=== PATIENT | male | born 1965 | race Caucasian/White ===

== ENCOUNTER 2017-09-11 23:18 | Inpatient (IN) | payer OTHER ==
[2017-09-11] MEDS ORDERED: SODIUM CHLORIDE 0.9% 1,000 ML IV STA (23:38)
[2017-09-11] MEDS ORDERED: FAMOTIDINE 20 MG/2 ML VIAL IV STA (23:38)
[2017-09-11] MEDS ORDERED: ONDANSETRON 4 MG/2 ML VIAL IVP STA (23:38)
--- NOTE | 2017-09-12 00:03 | ED ---
General Adult HPI - General Chief complaint: Abdominal Pain Stated complaint: gallbladder issue Time Seen by Provider: 09/11/17 23:24 Source: patient, RN notes reviewed Mode of arrival: ambulatory Limitations: no limitations - History of Present Illness Initial comments: Patient 52-year-old male presented to the emergency room today with a chief complaint of abdominal pain. Patient does admit to history of gallstones. He states that over the weekend began having increased discomfort to the right upper quadrant. Patient states that he noticed the pain is worse and more aggravated after eating and drinking. She does admit to feeling nauseated with no vomiting. Denies any other complaints or symptoms currently. Patient denies any recent fever, chills, shortness of breath, chest pain, back pain, vomiting, numbness or tingling, dysuria or hematuria, constipation or diarrhea, headaches or visual changes, or any other complaints. - Related Data Home Medications Medication Instructions Recorded Confirmed Albuterol Nebulized [Ventolin 2.5 mg INHALATION RT-Q6H PRN 06/11/15 06/11/15 Nebulized] Amoxicillin/Potassium Clav 1 tab PO BID 06/11/15 06/11/15 [Amox-Clav 875-125 mg Tablet] Atenolol 50 mg PO DAILY 06/11/15 06/11/15 Ibuprofen [Motrin] 800 mg PO BID PRN 06/11/15 06/11/15 Omeprazole [PriLOSEC] 20 mg PO DAILY 06/11/15 06/11/15 Previous Rx's Medication Instructions Recorded Albuterol Nebulized [Ventolin 2.5 mg INHALATION Q6H #120 nebu 06/14/15 Nebulized] Azithromycin [Zithromax Z-pack] 0 mg PO DIRECTED #6 tab 06/14/15 predniSONE 0 mg PO DIRECTED #12 tab 06/14/15 Allergies Allergy/AdvReac Type Severity Reaction Status Date / Time No Known Allergies Allergy Verified 09/11/17 23:22 Review of Systems ROS Statement: Those systems with pertinent positive or pertinent negative responses have been documented in the HPI. ROS Other: All systems not noted in ROS Statement are negative. Past Medical History Past Medical History: GERD/Reflux, Hypertension Additional Past Medical History / Comment(s): "HERNIATED DISCS", VARICOSE VEINS , BRONCHITIS,UPPER RESP TRACT INFECTIONS,GOUT, RT LEG DICOLOARATION., History of Any Multi-Drug Resistant Organisms: None Reported Past Surgical History: Hernia Repair Additional Past Surgical History / Comment(s): EGD/COLONOSCOPY ONE SMALL POYLS REMOVED-BENIGN., UMBILCAL HERNIA REAPAIR. Additional Past Anesthesia/Blood Transfusion Reaction / Comment(s): -NO BLOOD PRODUCTS Past Psychological History: No Psychological Hx Reported Smoking Status: Never smoker Past Alcohol Use History: None Reported Past Drug Use History: None Reported - Past Family History Father Family Medical History: Cancer, COPD, Diabetes Mellitus, Prostate Disorder Additional Family Medical History / Comment(s): PROSTATE CANCER Mother Family Medical History: COPD, Hypertension General Exam - General Exam Comments Initial Comments: General: The patient is awake and alert, in no distress, and does not appear acutely ill. Eye: Pupils are equal, round and reactive to light, extra-ocular movements are intact. No nystagmus. There is normal conjunctiva bilaterally. No signs of icterus. Ears, nose, mouth and throat: There are moist mucous membranes and no oral lesions. Neck: The neck is supple, there is no tenderness or JVD. Cardiovascular: There is a regular rate and rhythm. No murmur, rub or gallop is appreciated. Respiratory: Lungs are clear to auscultation, respirations are non-labored, breath sounds are equal. No wheezes, stridor, rales, or rhonchi. Gastrointestinal: Tender palpation of the right upper quadrant. No rebound, guarding, CVA tenderness. Musculoskeletal: Normal ROM, no tenderness. Strength 5/5. Sensation intact. Neurological: A&O x 3. CN II-XII intact, There are no obvious motor or sensory deficits. Coordination appears grossly intact. Speech is normal. Skin: Skin is warm and dry and no rashes or lesions are noted. Psychiatric: Cooperative, appropriate mood & affect, normal judgment. Limitations: no limitations Course Vital Signs 09/11/17 23:19 Temperature 98.2 F Pulse Rate 73 Respiratory 18 Rate Blood Pressure 128/78 O2 Sat by Pulse 98 Oximetry Medical Decision Making - Medical Decision Making Patient's labs been reviewed does show elevated amylase lipase. Results discussed with patient. Patient does have a known history of gallstones. Ultrasound showing no evidence of acute cholecystitis. Patient will be admitted to the hospital with consult to GI and surgery. - Lab Data Result diagrams: 09/12/17 00:00 09/12/17 00:00 Lab Results 09/12/17 09/12/17 09/12/17 Range/Units 00:00 00:00 00:12 WBC 6.1 (3.8-10.6) k/uL RBC 4.91 (4.30-5.90) m/uL Hgb 15.3 (13.0-17.5) gm/dL Hct 44.6 (39.0-53.0) % MCV 90.9 (80.0-100.0) fL MCH 31.2 (25.0-35.0) pg MCHC 34.3 (31.0-37.0) g/dL RDW 13.3 (11.5-15.5) % Plt Count 157 (150-450) k/uL Neutrophils % 60 % Lymphocytes % 26 % Monocytes % 9 % Eosinophils % 4 % Basophils % 1 % Neutrophils # 3.7 (1.3-7.7) k/uL Lymphocytes # 1.6 (1.0-4.8) k/uL Monocytes # 0.5 (0-1.0) k/uL Eosinophils # 0.2 (0-0.7) k/uL Basophils # 0.0 (0-0.2) k/uL Sodium 140 (137-145) mmol/L Potassium 4.2 (3.5-5.1) mmol/L Chloride 103 (98-107) mmol/L Carbon Dioxide 27 (22-30) mmol/L Anion Gap 10 mmol/L BUN 21 H (9-20) mg/dL Creatinine 0.90 (0.66-1.25) mg/dL Est GFR (CKD-EPI)AfAm >90 (>60 ml/min/1.73 sqM) Est GFR (CKD-EPI)NonAf >90 (>60 ml/min/1.73 sqM) Glucose 118 H (74-99) mg/dL Calcium 9.3 (8.4-10.2) mg/dL Total Bilirubin 5.7 H (0.2-1.3) mg/dL AST 300 H (17-59) U/L ALT 347 H (21-72) U/L Alkaline Phosphatase 89 (38-126) U/L Total Protein 7.5 (6.3-8.2) g/dL Albumin 4.7 (3.5-5.0) g/dL Amylase 177 H (30-110) U/L Lipase 2616 H (23-300) U/L Urine Color Lena Urine Appearance Clear (Clear) Urine pH 6.0 (5.0-8.0) Ur Specific [place] 1.022 (1.001-1.035) Urine Protein Trace H (Negative) Urine Glucose (UA) Negative (Negative) Urine Ketones Negative (Negative) Urine Blood Negative (Negative) Urine Nitrite Negative (Negative) Urine Bilirubin 2+ H (Negative) Urine Urobilinogen 4.0 (<2.0) mg/dL Ur Leukocyte Esterase Negative (Negative) Disposition Clinical Impression: Acute pancreatitis Disposition: ADMITTED IP TO THIS [facility] Condition: Good Is patient prescribed a controlled substance at d/c from ED?: No Referrals: Dylon Bonilla MD [Primary Care Provider] - 1-2 days Time of Disposition: 01:45
[2017-09-12 00:07] LABS: Basophils % (A) 1 %; Eosinophils # (A) 0.2 k/uL (0-0.7); Eosinophils % (A) 4 %; HCT 44.6 % (39.0-53.0); HGB 15.3 gm/dL (13.0-17.5); Lymphocytes # (A) 1.6 k/uL (1.0-4.8); Lymphocytes % (A) 26 %; MCH 31.2 pg (25.0-35.0); MCHC 34.3 g/dL (31.0-37.0); MCV 90.9 fL (80.0-100.0); Mean Platelet Volume 7.4; Monocytes # (A) 0.5 k/uL (0-1.0); Monocytes % (A) 9 %; Neutrophils # (A) 3.7 k/uL (1.3-7.7); Neutrophils % (A) 60 %; Platelet Count 157 k/uL (150-450); RBC 4.91 m/uL (4.30-5.90); RDW 13.3 % (11.5-15.5); WBC 6.1 k/uL (3.8-10.6)
[2017-09-12 00:18] LABS: Albumin 4.7 g/dL (3.5-5.0); Amylase 177 U/L (30-110); Anion Gap 10 mmol/L; Calcium 9.3 mg/dL (8.4-10.2); Carbon Dioxide 27 mmol/L (22-30); Chloride 103 mmol/L (98-107); Glucose 118 mg/dL (74-99); Sodium 140 mmol/L (137-145); Total Bilirubin 5.7 mg/dL (0.2-1.3); Total Protein 7.5 g/dL (6.3-8.2)
[2017-09-12 00:22] LABS: Appearance,Urine Clear (Clear); Bilirubin,Urine 2+ (Negative); Blood,Urine Negative (Negative); Color,Urine Orange; Glucose,Urine (UA) Negative (Negative); Ketones,Urine Negative (Negative); Leukocyte Esterase,Urine Negative (Negative); Nitrite,Urine Negative (Negative); Protein,Urine Trace (Negative); Specific Gravity,Urine 1.022 (1.001-1.035)
[2017-09-12 00:25] LABS: ALT 347 U/L (21-72); AST 300 U/L (17-59); Blood Urea Nitrogen 21 mg/dL (9-20); Potassium 4.2 mmol/L (3.5-5.1)
[2017-09-12 00:26] LABS: Alkaline Phosphatase 89 U/L (38-126); Lipase 2616 U/L (23-300)
--- NOTE | 2017-09-12 00:56 | US ---
EXAMINATION TYPE: US abdomen limited DATE OF EXAM: 09/12/2017 COMPARISON: NONE CLINICAL HISTORY: Pain. RUQ pain hx of gallbladder stones. Exam limitations due to body habitus. EXAM MEASUREMENTS: Liver Length: 24.7 cm Gallbladder Wall: Not well visualized due to shadowing. CBD: 0.59 cm Right Kidney: 12.6 x 5.2 x 6.1 cm Pancreas: Obscured by bowel gas Liver: Increased attenuation Gallbladder: ROSLYN sign Evidence for sonographic Reese's sign: No CBD: wnl Right Kidney: No hydronephrosis or masses seen ROSLYN sign gallbladder. IMPRESSION: There is shadowing in the right upper quadrant consistent with a contracted gallbladder f ull of stones. No dilated ducts. No focal liver defect.
[2017-09-12] MEDS ORDERED: SODIUM CHLORIDE 0.9% 1,000 ML IV ONE (01:46)
[2017-09-12] MEDS ORDERED: ONDANSETRON 4 MG/2 ML VIAL IVP PRN (01:46)
[2017-09-12] MEDS ORDERED: MORPHINE SULFATE 4 MG/ML SYRINGE IV PRN (01:46)
[2017-09-12] MEDS ORDERED: NALOXONE 0.4 MG/ML 1 ML VIAL IV PRN (01:46)
[2017-09-12] MEDS ORDERED: LORazepam 2 MG/ML INJ IV PRN (01:46)
[2017-09-12 04:23] VITALS: BMI 52.5
--- NOTE | 2017-09-12 08:38 | P.CONS ---
History of Present Illness - Reason for Consult Consult date: 09/12/17 Pancreatitis Requesting physician: Dylon Bonilla - History of Present Illness 52-year-old male admitted with severe epigastric upper back pain that started Douglas night with nausea acholic stool and darker urine. Patient has had a similar attack of pain but occurred many years ago. Denies fever chills hematemesis magnesium melena. Admission white count 6.1. He will and 15.3. BUN 21 creatinine 0.9. Total bilirubin 5.7. AST 300. ALT 347. AP 89. Lipase 2616. Amylase 177. No history of autoimmune disorders, pancreatitis alcoholism or changes in medications. He has intentionally lost 100 pounds over the last 12-18 months secondary to diet changes present BMI is 52.6. Ultrasound the abdomen reported multiple gallstones. CBD 0.59 cm. No focal liver defect. No dilated ducts. Review of Systems Constitutional: Denies fever, chills, sweats, weight gain, or loss. HEENT: Negative for migraines, blurred vision or loss, earaches, drainage, tinnitus, oral mucosal lesions, dysphagia, or odynophagia. Cardiac: Negative for chest pain, arrhythmias, or palpitation. Respiratory: Negative for shortness of breath, hemoptysis, cough, or sputum production. Gastrointestinal: See HPI for pertinent findings. Genitourinary: Negative for hematuria, urgency, frequency, polyuria, dysuria, or penile discharge. Musculoskeletal: Negative for muscle aches, swelling, arthritis, and arthralgias. Neurologic: Negative for stroke or TIA. Endocrine: Negative for thyroid problems. Skin: Negative for rash or itching. Psychiatric: Negative history for depression and anxiety Past Medical History Past Medical History: GERD/Reflux, Hypertension Additional Past Medical History / Comment(s): HERNIATED DISCS, VARICOSE VEINS, BRONCHITIS, UPPER RESP TRACT INFECTIONS,GOUT, RT LEG DICOLOARATION., History of Any Multi-Drug Resistant Organisms: None Reported Past Surgical History: Hernia Repair Additional Past Surgical History / Comment(s): EGD/COLONOSCOPY ONE SMALL POLYP REMOVED-BENIGN., UMBILCAL HERNIA REAPAIR. Additional Past Anesthesia/Blood Transfusion Reaction / Comm: -NO BLOOD PRODUCTS Past Psychological History: No Psychological Hx Reported Smoking Status: Never smoker Past Alcohol Use History: None Reported Past Drug Use History: None Reported - Past Family History Father Family Medical History: Cancer, COPD, Diabetes Mellitus, Prostate Disorder Additional Family Medical History / Comment(s): PROSTATE CANCER Mother Family Medical History: COPD, Hypertension Medications and Allergies Home Medications Medication Instructions Recorded Confirmed Type Ibuprofen [Motrin] 800 mg PO BID PRN 06/11/15 09/12/17 History Metoprolol Tartrate [Lopressor] 50 mg PO AC-SUPPER 09/12/17 09/12/17 History Omeprazole [PriLOSEC] 20 mg PO DAILY PRN 09/12/17 09/12/17 History Allergies Allergy/AdvReac Type Severity Reaction Status Date / Time No Known Allergies Allergy Verified 09/12/17 08:10 Physical Exam Vitals: Vital Signs Temp Pulse Pulse Resp BP BP Pulse Ox 09/12/17 05:25 97.7 F 69 16 136/69 97 09/12/17 02:54 97.6 F 71 16 132/74 94 L 09/12/17 02:40 16 09/11/17 23:19 98.2 F 73 18 128/78 98 Intake and Output 09/11/17 09/12/17 09/12/17 22:59 06:59 14:59 Other: # Voids 1 Weight 171.004 kg General appearance: The patient is alert, oriented, in no acute distress. Mildly jaundiced in appearance. Sclerae icterus. HET: Head is normocephalic and atraumatic. Pupils are equal and reactive. Oropharynx is clear without lesions. Neck: Supple without lymphadenopathy. Trachea midline. Heart: S1 S2. Regular rate and rhythm. Lungs: No crackles or wheezes are heard. Abdomen: Soft, mild midepigastric pain, nondistended with bowel sounds. No peritoneal signs. No palpable organomegaly or masses. Extremities: Normal skin color and turgor. No cyanosis, rash, ulceration, clubbing, or edema. Radial and pedal pulses are 2/4 bilaterally. Neurological: No focal deficits. Strength and sensation are grossly intact. Results CBC & Chem 7: 09/13/17 07:40 09/13/17 07:40 Labs: Abnormal Lab Results - Last 24 Hours (Table) 09/12/17 09/12/17 Range/Units 00:00 00:12 BUN 21 H (9-20) mg/dL Glucose 118 H (74-99) mg/dL Total Bilirubin 5.7 H (0.2-1.3) mg/dL AST 300 H (17-59) U/L ALT 347 H (21-72) U/L Amylase 177 H (30-110) U/L Lipase 2616 H (23-300) U/L Urine Protein Trace H (Negative) Urine Bilirubin 2+ H (Negative) US - abdomen: report reviewed (Dr. Banks) Assessment and Plan (1) Acute pancreatitis Narrative/Plan: Suspect gallstone pancreatitis possible choledocholithiasis. Current Visit: Yes Status: Acute Code(s): K85.90 - ACUTE PANCREATITIS WITHOUT NECROSIS OR INFECTION, UNSP SNOMED Code(s): 725072189 (2) Cholelithiasis Current Visit: Yes Status: Acute Code(s): K80.20 - CALCULUS OF GALLBLADDER W /O CHOLECYSTITIS W/O OBSTRUCTION SNOMED Code(s): 331306917 (3) Morbid obesity with BMI of 50.0-59.9, adult Current Visit: Yes Status: Acute Code(s): E66.01 - MORBID (SEVERE) OBESITY DUE TO EXCESS CALORIES; Z68.43 - BODY MASS INDEX (BMI) 50-59.9 , ADULT SNOMED Code(s): 507304851 Plan: 1. IV fluids at 125 ml hour. 2. Ice chips popsicles. 3. Repeat chemistries at noon and in am. Hepatitis screen. 4. ERCP contingent on clinical course. 5. General surgical consult. Thank you for this kind referral and the opportunity to participate in the care of your patient. This consultation was discussed with Dr. Banks. The impression and plan of care have been directed as dictated.
--- NOTE | 2017-09-12 11:52 | P.GSCN ---
History of Present Illness Consult date: 09/12/17 Reason for Consult: Gallstone pancreatitis History of present illness: This a 52-year-old male with history of gallstones. Patient presents to the emergency complaints of abdominal pain which radiate to his back. He is worked up found evidence of gallstone pancreatitis. His ultrasound shows a contracted gallbladder.. Past Medical History Past Medical History: GERD/Reflux, Hypertension Additional Past Medical History / Comment(s): HERNIATED DISCS, VARICOSE VEINS, BRONCHITIS, UPPER RESP TRACT INFECTIONS,GOUT, RT LEG DICOLOARATION., History of Any Multi-Drug Resistant Organisms: None Reported Past Surgical History: Hernia Repair Additional Past Surgical History / Comment(s): EGD/COLONOSCOPY ONE SMALL POLYP REMOVED-BENIGN., UMBILCAL HERNIA REAPAIR. Additional Past Anesthesia/Blood Transfusion Reaction / Comm: -NO BLOOD PRODUCTS Past Psychological History: No Psychological Hx Reported Smoking Status: Never smoker Past Alcohol Use History: None Reported Past Drug Use History: None Reported - Past Family History Father Family Medical History: Cancer, COPD, Diabetes Mellitus, Prostate Disorder Additional Family Medical History / Comment(s): PROSTATE CANCER Mother Family Medical History: COPD, Hypertension Medications and Allergies Home Medications Medication Instructions Recorded Confirmed Type Ibuprofen [Motrin] 800 mg PO BID PRN 06/11/15 09/12/17 History Metoprolol Tartrate [Lopressor] 50 mg PO AC-SUPPER 09/12/17 09/12/17 History Omeprazole [PriLOSEC] 20 mg PO DAILY PRN 09/12/17 09/12/17 History Allergies Allergy/AdvReac Type Severity Reaction Status Date / Time No Known Allergies Allergy Verified 09/12/17 08:10 Surgical - Exam Vital Signs Temp Pulse Resp BP Pulse Ox 98.2 F 73 18 128/78 98 09/11/17 23:19 09/11/17 23:19 09/11/17 23:19 09/11/17 23:19 09/11/17 23:19 - General well developed, well nourished, no distress - Eyes PERRL - ENT normal pinna - Neck no masses - Respiratory normal expansion - Cardiovascular Rhythm: regular - Abdomen Mild epigastric tenderness Abdomen: soft Results - Labs 09/12/17 00:00 09/12/17 00:00 Abnormal Lab Results - Last 24 Hours (Table) 09/12/17 09/12/17 Range/Units 00:00 00:12 BUN 21 H (9-20) mg/dL Glucose 118 H (74-99) mg/dL Total Bilirubin 5.7 H (0.2-1.3) mg/dL AST 300 H (17-59) U/L ALT 347 H (21-72) U/L Amylase 177 H (30-110) U/L Lipase 2616 H (23-300) U/L Urine Protein Trace H (Negative) Urine Bilirubin 2+ H (Negative) Diabetes panel 09/12/17 Range/Units 00:00 Sodium 140 (137-145) mmol/L Potassium 4.2 (3.5-5.1) mmol/L Chloride 103 (98-107) mmol/L Carbon Dioxide 27 (22-30) mmol/L BUN 21 H (9-20) mg/dL Creatinine 0.90 (0.66-1.25) mg/dL Glucose 118 H (74-99) mg/dL Calcium 9.3 (8.4-10.2) mg/dL AST 300 H (17-59) U/L ALT 347 H (21-72) U/L Alkaline Phosphatase 89 (38-126) U/L Total Protein 7.5 (6.3-8.2) g/dL Albumin 4.7 (3.5-5.0) g/dL Calcium panel 09/12/17 Range/Units 00:00 Calcium 9.3 (8.4-10.2) mg/dL Albumin 4.7 (3.5-5.0) g/dL Pituitary panel 09/12/17 Range/Units 00:00 Sodium 140 (137-145) mmol/L Potassium 4.2 (3.5-5.1) mmol/L Chloride 103 (98-107) mmol/L Carbon Dioxide 27 (22-30) mmol/L BUN 21 H (9-20) mg/dL Creatinine 0.90 (0.66-1.25) mg/dL Glucose 118 H (74-99) mg/dL Calcium 9.3 (8.4-10.2) mg/dL Adrenal panel 09/12/17 Range/Units 00:00 Sodium 140 (137-145) mmol/L Potassium 4.2 (3.5-5.1) mmol/L Chloride 103 (98-107) mmol/L Carbon Dioxide 27 (22-30) mmol/L BUN 21 H (9-20) mg/dL Creatinine 0.90 (0.66-1.25) mg/dL Glucose 118 H (74-99) mg/dL Calcium 9.3 (8.4-10.2) mg/dL Total Bilirubin 5.7 H (0.2-1.3) mg/dL AST 300 H (17-59) U/L ALT 347 H (21-72) U/L Alkaline Phosphatase 89 (38-126) U/L Total Protein 7.5 (6.3-8.2) g/dL Albumin 4.7 (3.5-5.0) g/dL - Imaging US - abdomen: report reviewed (Contracted gallbladder full stones) Assessment and Plan Assessment: Gallstone pancreatitis with elevated bilirubin and liver function tests. The patient most likely has choledocholithiasis. GI as has been consult for possible ERCP. The patient will undergo laparoscopic ostectomy once his liver function tests and amylase lipase have returned to normal.
[2017-09-12 13:05] LABS: ALT 304 U/L (21-72); AST 220 U/L (17-59); Albumin 3.8 g/dL (3.5-5.0); Alkaline Phosphatase 85 U/L (38-126); Amylase 63 U/L (30-110); Anion Gap 6 mmol/L; Blood Urea Nitrogen 14 mg/dL (9-20); Calcium 8.9 mg/dL (8.4-10.2); Carbon Dioxide 28 mmol/L (22-30); Chloride 106 mmol/L (98-107); Glucose 89 mg/dL (74-99); Lipase 340 U/L (23-300); Potassium 4.7 mmol/L (3.5-5.1); Sodium 140 mmol/L (137-145); Total Bilirubin 3.2 mg/dL (0.2-1.3)
--- NOTE | 2017-09-12 22:17 | HP ---
HISTORY AND PHYSICAL CHIEF COMPLAINT: A 52-year-old white male, history of hypertension, osteoarthritis, history of epigastric upper back pain last Douglas night, nausea, acholic stool, darker urine many years ago. He was admitted and found have choledocholithiasis and cholecystitis for which surgery will be needed and pancreatitis with lipase 2616, amylase 177. He has no history of alcoholism, change medicines. He lost 100 pounds over the last 12 to 18 months trying to diet. Present BMI is 52.6. Ultrasound shows multiple gallstones. Common bile duct 0.59 cm. REVIEW OF SYSTEM: Fourteen point review of systems negative except for mentioned in HPI. PAST MEDICAL HISTORY: Obesity, GERD, hypertension, herniated discs, varicose veins, gout. SURGERIES: Hernia repair, EGD, colonoscopy, one small polyp, umbilical hernia repair. SOCIAL HISTORY: No smoking. No alcohol. FAMILY HISTORY: Father with cancer, COPD, diabetes mellitus, prostate disorder. Mother with COPD and hypertension. HOME MEDICATIONS: Prilosec 20 mg daily, metoprolol 50 Motrin 800 b.i.d. ALLERGIES: Negative. VITAL SIGNS: Temp 97.7, pulse 69 to 71, respiratory 16 to 18, blood pressure 128/78 to 136/69, O2 94% to 98%. GENERAL: Alert and orient x3. Mild jaundice. HEART: S1, S2. LUNGS: Clear. GI: Soft, mid epigastric tenderness. Normal bowel sounds. EXTREMITIES: No cyanosis, clubbing, edema. NEUROLOGIC: Cranial nerves are intact. White count 6.1, hemoglobin 15.3, BUN 21, creatinine 0.9, lipase 2616. ASSESSMENT: Acute pancreatitis, choledocholithiasis, cholelithiasis, hypertension. ERCP will be done and a surgical cholecystectomy will be done pending lowering of blood tests. MMODL / IJN: [id number] /
[2017-09-13 08:13] LABS: INR 1.1 (<1.2); Prothrombin Time 10.9 sec (9.0-12.0)
[2017-09-13 08:22] LABS: ALT 301 U/L (21-72); AST 204 U/L (17-59); Albumin 3.6 g/dL (3.5-5.0); Alkaline Phosphatase 78 U/L (38-126); Amylase 43 U/L (30-110); Anion Gap 5 mmol/L; Blood Urea Nitrogen 13 mg/dL (9-20); Calcium 8.7 mg/dL (8.4-10.2); Carbon Dioxide 28 mmol/L (22-30); Chloride 107 mmol/L (98-107); Glucose 83 mg/dL (74-99); Lipase 129 U/L (23-300); Potassium 4.2 mmol/L (3.5-5.1); Sodium 140 mmol/L (137-145); Total Bilirubin 3.2 mg/dL (0.2-1.3); Total Protein 5.8 g/dL (6.3-8.2)
[2017-09-13 08:49] LABS: Basophils % (A) 0 %; Eosinophils # (A) 0.2 k/uL (0-0.7); Eosinophils % (A) 4 %; HCT 38.5 % (39.0-53.0); HGB 13.5 gm/dL (13.0-17.5); Lymphocytes # (A) 1.2 k/uL (1.0-4.8); Lymphocytes % (A) 28 %; MCH 32.1 pg (25.0-35.0); MCHC 35.1 g/dL (31.0-37.0); MCV 91.6 fL (80.0-100.0); Mean Platelet Volume 7.5; Monocytes # (A) 0.4 k/uL (0-1.0); Monocytes % (A) 9 %; Neutrophils # (A) 2.4 k/uL (1.3-7.7); Neutrophils % (A) 57 %; Platelet Count 131 k/uL (150-450); RBC 4.21 m/uL (4.30-5.90); RDW 13.2 % (11.5-15.5); WBC 4.3 k/uL (3.8-10.6)
--- NOTE | 2017-09-13 09:54 | P.PN ---
Subjective Progress Note Date: 09/13/17 Principal diagnosis: gallstone pancreatitis Abdominal pain resolved. Afebrile. LFTs improved yesterday however this morning remain unchanged. Pancreatic enzymes normalized. Objective - Vital Signs Vital signs: Vital Signs Temp 97.7 F 09/13/17 05:22 Pulse 72 09/13/17 05:22 Resp 1 L 09/13/17 08:00 BP 138/68 09/13/17 05:22 Pulse Ox 96 09/13/17 05:22 Intake & Output 09/12/17 09/13/17 09/13/17 18:59 06:59 18:59 Intake Total 1000 Balance 1000 Intake: Intake, IV Titration 1000 Amount Sodium Chloride 0.9% 1, 1000 000 ml @ 125 mls/hr IV . Q8H ONE Rx#:[id number] Other: Voiding Method Toilet Toilet # Voids 2 - Exam General appearance: The patient is alert, oriented, in no acute distress. Jaundice. Sclerae icterus. HET: Head is normocephalic and atraumatic. Pupils are equal and reactive. Oropharynx is clear without lesions. Neck: Supple without lymphadenopathy. Trachea midline. Heart: S1 S2. Regular rate and rhythm. Lungs: No crackles or wheezes are heard. Abdomen: Soft, nontender, nondistended with bowel sounds. No peritoneal signs. No palpable organomegaly or masses. Extremities: Normal skin color and turgor. No cyanosis, rash, ulceration, clubbing, or edema. Radial and pedal pulses are 2/4 bilaterally. Neurological: No focal deficits. Strength and sensation are grossly intact. - Labs CBC & Chem 7: 09/13/17 07:40 09/13/17 07:40 Labs: Abnormal Lab Results - Last 24 Hours (Table) 09/12/17 09/13/17 09/13/17 Range/Units 12:28 07:40 07:40 RBC 4.21 L (4.30-5.90) m/uL Hct 38.5 L (39.0-53.0) % Plt Count 131 L (150-450) k/uL Total Bilirubin 3.2 H 3.2 H (0.2-1.3) mg/dL AST 220 H 204 H (17-59) U/L ALT 304 H 301 H (21-72) U/L Total Protein 6.0 L 5.8 L (6.3-8.2) g/dL Lipase 340 H (23-300) U/L Assessment and Plan (1) Acute pancreatitis Narrative/Plan: Suspect gallstone pancreatitis possible choledocholithiasis. Current Visit: Yes Status: Acute Code(s): K85.90 - ACUTE PANCREATITIS WITHOUT NECROSIS OR INFECTION, UNSP SNOMED Code(s): 248372852 (2) Cholelithiasis Current Visit: Yes Status: Acute Code(s): K80.20 - CALCULUS OF GALLBLADDER W /O CHOLECYSTITIS W/O OBSTRUCTION SNOMED Code(s): 263010185 (3) Morbid obesity with BMI of 50.0-59.9, adult Current Visit: Yes Status: Acute Code(s): E66.01 - MORBID (SEVERE) OBESITY DUE TO EXCESS CALORIES; Z68.43 - BODY MASS INDEX (BMI) 50-59.9 , ADULT SNOMED Code(s): 243619944 Plan: 1. Case was discussed with general surgeon will proceed with ERCP today rule out choledocholithiasis. 2. Hepatitis screen pending. Continue nothing by mouth status. The asic verification engineer has discussed the risks, benefits and alternative therapies for the above-mentioned procedure and for both sedation/analgesia as well as necessary blood product administration, if indicated, as they pertain to this patient. The patient has indicated understanding and acceptance of the risks and procedures discussed. Assessment and plan of care discussed with Dr. Banks
[2017-09-13] MEDS ORDERED: INDOMETHACIN 50MG SUPPOSITORY RECTAL ONE (11:00)
[2017-09-13] MEDS ORDERED: LEVOFLOXACIN 500MG-D5W PMX 500 MG in DEXTROSE/WATER 1 100ML.BAG IVPB ONE (11:00)
[2017-09-13] MEDS ORDERED: MIDAZOLAM 2 MG/2 ML VIAL ONE (12:54)
[2017-09-13] MEDS ORDERED: KETAMINE 10 MG/ML 20 ML VIAL ONE (12:54)
[2017-09-13] MEDS ORDERED: PROPOFOL 10 MG/ML 20 ML VIAL IV ONE (12:54)
[2017-09-13] MEDS ORDERED: LIDOCAINE 1% INJ 10MG/ML (20 ML MDV) ONE (12:54)
[2017-09-13] MEDS ORDERED: SODIUM CHLORIDE 0.9% 450 ML IV ONE (13:02)
[2017-09-13] MEDS ORDERED: IOPAMIDOL-300 50ML BTL MISCELLANE ONE (13:03)
--- NOTE | 2017-09-13 13:44 | P.PCN ---
Date of Procedure: 09/13/17 Procedure(s) Performed: Brief history: Patient is a 52-year-old pleasant white male, scheduled for an ERCP as part of evaluation of abdominal pain and elevated serum transaminases for the last 2 days' duration. he was a [facility] with acute gallstone pancreas and was noted to have elevated bilirubin up to 5.3. His labs improved today but bilirubin is still at 3.2 g/dL. Because of the clinical suspicion for CBD stones he scheduled for an ERCP today. Procedure performed: ERCP with biliary sphincterotomy and balloon extraction Preoperative diagnoses: elevated LFTs/jaundice and acute gallstone pain. IV sedation per anesthesia: Procedure: After informed consent was obtained from the patient and after the risks benefits and complications including bleeding perforation and pancreatitis explained in detail the patient was brought into the endoscopy unit. The patient was placed in prone position and IV conscious sedation was administered by anesthesia under continuous monitoring. The Olympus side-viewing duodenoscope was then inserted into the mouth and esophagus intubated without any difficulty. The scope was gradually advanced into the stomach and duodenum. The major papilla was identified without any difficulty. initial cannulation resulted in opacification of the common bile duct that measured about 5 cm in diameter but there was a small faint filling defect noted in the distal CBD. At this time I proceeded with biliary sphincterotomy after the catheter was extended over a guidewire. The biliary sphincterotomy was performed at 12 o'clock position and was extended to 1 cm. Following this a 11 mm balloon catheter was passed over the guidewire and was gently suite distally but I did not see any obvious stones exiting the ampulla. This maneuver was repeated 3 more times. Occlusion cholangiogram was performed and no other filling defects were seen. At this time the procedure was terminated. Pancreatic duct was intentionally not cannulated. Patient tolerated the procedure well. Impression: Normal-appearing common Bile duct with a faint filling defect in the distal CBD , status post biliary sphincterotomy and balloon extraction as described above. No obvious stone seen exiting the ampulla Pancreatic duct intentionally not cannulated. Recommendations: The findings of this examination were discussed with the patient as well as a family. He will be started on clear liquid diet today. Repeat labs tomorrow morning.
[2017-09-13] MEDS ORDERED: SODIUM CHLORIDE 0.9% 1,000 ML IV ONE (13:46)
--- NOTE | 2017-09-13 15:22 | P.PN ---
Progress Note - Text Progress Note Date: 09/13/17 Patient is resting comfortably his bed. He had his ERCP performed today. Per the patient there was no stone found. On exam is lesser stable. His abdomen soft. Patient was scheduled for laparoscopic cholecystectomy in the a.m.
--- NOTE | 2017-09-13 16:02 | FL ---
Fluoroscopy INDICATION: ERCP FINDINGS: Fluoroscopy time: 75 seconds. Images obtained: 0. IMPRESSIONS: 1. Documentation of fluoroscopy.
--- NOTE | 2017-09-13 23:20 | PN ---
PROGRESS NOTE SUBJECTIVE: A 52-year-old white male, status post ERCP with stone removal, awaiting gallbladder surgery for acute choledocholithiasis with occult cause pancreatitis. VITAL SIGNS: Stable, afebrile. ENDOCRINE: BMI is over 50. CARDIOVASCULAR: S1, S2. LUNGS: Clear. GI has tenderness to palpation, diffuse abdomen. HEMATOLOGY: Negative Homans'. ASSESSMENT: 1. Choledocholithiasis. 2. Acute acalculous cholecystitis. Continue current treatment. Possible cholecystectomy soon. Pain control. MMODL / IJN: [id number] /
[2017-09-14 01:03] LABS: Hepatitis A Antibody IgM Non-Reactive (Non-Reactive); Hepatitis B Core IgM Non-Reactive (Non-Reactive)
[2017-09-14 08:03] LABS: ALT 261 U/L (21-72); AST 147 U/L (17-59); Albumin 3.8 g/dL (3.5-5.0); Alkaline Phosphatase 77 U/L (38-126); Amylase 69 U/L (30-110); Anion Gap 10 mmol/L; Blood Urea Nitrogen 12 mg/dL (9-20); Calcium 8.9 mg/dL (8.4-10.2); Carbon Dioxide 23 mmol/L (22-30); Chloride 107 mmol/L (98-107); Glucose 85 mg/dL (74-99); Lipase 118 U/L (23-300); Sodium 140 mmol/L (137-145); Total Bilirubin 3.1 mg/dL (0.2-1.3)
[2017-09-14] MEDS ORDERED: IV FLUID CONTINUATION 1,000 ML IV ONE (11:31)
[2017-09-14] MEDS ORDERED: METOPROLOL TARTRATE 50 MG TAB PO STA (11:40)
[2017-09-14] MEDS ORDERED: HEPARIN SODIUM,PORCINE 5,000 UNIT/ML 1 ML VIAL SQ ONE (11:58)
[2017-09-14] MEDS ORDERED: GLYCOPYRROLATE 0.2 MG/ML 2 ML VIAL ONE (12:17)
[2017-09-14] MEDS ORDERED: LIDOCAINE 1% INJ 10MG/ML (20 ML MDV) ONE (12:17)
[2017-09-14] MEDS ORDERED: HYDROmorphone (PF) 1 MG/ML ONE (12:17)
[2017-09-14] MEDS ORDERED: PROPOFOL 10 MG/ML 20 ML VIAL IV ONE (12:17)
[2017-09-14] MEDS ORDERED: ROCURONIUM BROMIDE 10 MG/ML 10 ML VIAL IV ONE (12:17)
[2017-09-14] MEDS ORDERED: MIDAZOLAM 2 MG/2 ML VIAL ONE (12:17)
[2017-09-14] MEDS ORDERED: SUCCINYLCHOLINE CHLORIDE VIAL 200 MG/10 ML VIAL IV ONE (12:17)
[2017-09-14] MEDS ORDERED: fentaNYL (PF) 50 MCG/ML 2 ML AMP ONE (12:17)
[2017-09-14] MEDS ORDERED: NEOSTIGMINE 1 MG/ML 10 ML VIAL ONE (12:17)
[2017-09-14] MEDS ORDERED: BUPIVACAINE-EPI 0.5%-1:200,000 10 ML VIAL SQ ONE (12:43)
[2017-09-14] MEDS ORDERED: LACTATED RINGERS 1,000 ML IV ONE ×2 (13:02→13:26)
[2017-09-14] MEDS ORDERED: PANTOPRAZOLE 40 MG TABLET PO PRN (13:10)
--- NOTE | 2017-09-14 13:16 | P.OP ---
Date of Procedure: 09/14/17 Preoperative Diagnosis: Cholelithiasis Postoperative Diagnosis: Cholelithiasis Procedure(s) Performed: Laparoscopic cholecystectomy Anesthesia: KENISHA Surgeon: Bill Dutta Estimated Blood Loss (ml): 20 Pathology: other (er gallbladder) Condition: stable Disposition: PACU Description of Procedure: The patient was placed on the operating table. The patient received a general endotracheal tube anesthesia. The patients abdomen was prepped and draped in the usual sterile fashion. A Veress needles placed in the left upper quadrant through a small stab incision. The abdomen was insufflated. Next, a 5 ohmmeter operative trochars placed under visualization the right lateral position and then another 5 mm trochars placed in the right midabdomen position and a 8 mm trochars placed epigastric position. A fibrillar trocar is placed in the supraumbilical position. This was placed above his previous repair. . Following this the laparoscope was placed in the peritoneal cavity. The patient was placed in the head-up, right side up position and then a 5 mm trocar was placed in the right lateral and right subcostal position under direct visualization. A 8 mm trocar was placed in the epigastric position. The gallbladder was grasped in the fundus and infundibulum. Traction on the gallbladder was placed in the lateral and the cephalad positions. The triangle of Calot was visualized.. The cystic duct was bluntly dissected until the union of the cystic duct and common bile duct was seen. The cystic duct was then divided and sealed with the Harmonic scissors. A PDS Endoloop was then placed throughout the cystic duct stump. The cystic artery divided and sealed with the Harmonic scissors. The gallbladder was then removed from the liver bed using Harmonic scissors. The gallbladder was then extracted through the epigastric port site. Operative field was checked for any bleeding spots and Harmonic scissors was used to coagulate the liver bed. The abdomen was irrigated. The trocars were removed. The skin was closed using interrupted 3- 0 Vicryl suture. Dermabond dressing were applied. The patient tolerated the procedure well.
[2017-09-14] MEDS ORDERED: HYDROmorphone 1 MG/ML 1 ML SYRINGE IVP ONE ×2 (13:31→13:37)
[2017-09-14] MEDS ORDERED: METOPROLOL TARTRATE 50 MG TAB PO SCH (17:30)
[2017-09-15] MEDS ORDERED: HYDROmorphone 0.5 MG/0.5 ML SYRINGE IVP PRN (07:16)
[2017-09-15] MEDS ORDERED: LACTATED RINGERS 1,000 ML IV SCH (07:16)
[2017-09-15] MEDS ORDERED: LIDOCAINE 1% 20 ML VIAL (10MG/ML) FOR IV START INTRADERMA PRN (07:16)
--- NOTE | 2017-09-15 09:07 | P.PN ---
Subjective Progress Note Date: 09/15/17 09/15/2017: Patient seen and examined covering for Dr. Bonilla. The patient states his abdominal pain is improving. He is tolerating clear liquid diet and is asking to be advanced. He has been hemodynamically stable. His is at bedside. He is wondering when he can go home. Patient states he is having flatulence. He has not had a bowel movement since yesterday. No issues with urinating. Objective - Vital Signs Vital signs: Vital Signs Temp 98 F 09/15/17 06:04 Pulse 81 09/15/17 06:04 Resp 20 09/15/17 06:04 BP 140/91 09/15/17 06:04 Pulse Ox 93 L 09/15/17 06:04 Intake & Output 09/14/17 09/15/17 09/15/17 18:59 06:59 18:59 Intake Total 1260 600 Output Total 20 Balance 1240 600 Intake: IV 1200 Intake, IV Titration 600 Amount Lactated Ringers 1,000 ml 600 @ 0 mls/hr IV .[facility] Rx#:[id number] Oral 60 Output: Estimated Blood Loss 20 Other: Voiding Method Toilet Toilet # Voids 2 1 - Exam Gen.: Patient is alert and oriented 3, no acute distress, obese Cardiovascular: Regular rate and rhythm, S1/S2 Lungs: Clear to auscultation bilaterally no wheezes rales or rhonchi Abdomen: Soft mildly diffusely tender to palpation, positive bowel sounds Extremities: No edema - Labs CBC & Chem 7: 09/13/17 07:40 09/14/17 07:02 Assessment and Plan Assessment: Choledocholithiasis Acute acalculous cholecystitis Status post cholecystectomy Acute pancreatitis Acute transaminitis Status post ERCP Morbid obesity Hypertension GERD Advance diet per surgery team Pain control Incentive spirometry and pulmonary hygiene Encourage ambulation Monitor LFTs Continue patient's home medications GI and DVT prophylaxis Awaiting surgical clearance for discharge
[2017-09-15 15:06] VITALS: BP 133/65; PULSE 84; RESP 16; TEMP 97.4
--- NOTE | 2017-09-15 17:00 | P.DS ---
Providers Date of admission: 09/12/17 01:46 Expected date of discharge: 09/15/17 Attending physician: Dylon Bonilla Consults: 09/12/17 01:46 Consult Physician Stat Consulting Provider: Bill Dutta Consult Reason/Comments: Gallstones, pancreatic tenderness Do you want consulting provider notified?: Yes Primary care physician: [facility] Course: Patient seen and examined covering for Dr. Bonilla. He is status post lap- choley. The patient states his abdominal pain is improving. He is tolerating clear liquid diet and is asking to be advanced. He has been hemodynamically stable. His is at bedside. He is wondering when he can go home. Patient states he is having flatulence. He has not had a bowel movement since yesterday. No issues with urinating. He has been cleared by surgery to go home Pertinent Studies: abdominal ultrasound Procedures: Laparoscopic cholecystectomy Patient Condition at Discharge: Good Plan - Discharge Summary New Discharge Prescriptions: Continue Ibuprofen [Motrin] 800 mg PO BID PRN PRN Reason: Pain Omeprazole [PriLOSEC] 20 mg PO DAILY PRN PRN Reason: Heartburn Metoprolol Tartrate [Lopressor] 50 mg PO AC-SUPPER Discharge Medication List Ibuprofen [Motrin] 800 mg PO BID PRN 06/11/15 [History] Metoprolol Tartrate [Lopressor] 50 mg PO AC-SUPPER 09/12/17 [History] Omeprazole [PriLOSEC] 20 mg PO DAILY PRN 09/12/17 [History] Follow up Appointment(s)/Referral(s): Dylon Bonilla MD [Primary Care Provider] - 1-2 days Activity/Diet/Wound Care/Special Instructions: follow up with surgery, diet as tolerated Discharge Disposition: HOME SELF-CARE
== END 2017-09-15 18:25 | disposition home or self-care (01) | DRG 417 ==
LOC: EC 23:18 → 5MS5E 09-12 01:46
PROVIDERS: ADMIT Family Medicine; ATTEND Family Medicine
PROC: BF101ZZ Fluoroscopy of Bile Ducts using Low Osmolar Contrast (ICD-10-PCS; 2017-09-13)
PROC: 0F798ZZ Dilation of Common Bile Duct, Via Natural or Artificial Opening Endoscopic (ICD-10-PCS; principal; 2017-09-13 08:40)
PROC: 0FT44ZZ Resection of Gallbladder, Percutaneous Endoscopic Approach (ICD-10-PCS; 2017-09-14)
DX: K80.42 Calculus of bile duct with acute cholecystitis without obstruction (principal); K85.10 Biliary acute pancreatitis without necrosis or infection; Z68.43 Body mass index [BMI] 50.0-59.9, adult; R17 Unspecified jaundice; E66.01 Morbid (severe) obesity due to excess calories; I10 Essential (primary) hypertension; K21.9 Gastro-esophageal reflux disease without esophagitis; Z79.899 Other long term (current) drug therapy; Z80.42 Family history of malignant neoplasm of prostate; Z82.49 Family history of ischemic heart disease and other diseases of the circulatory system; Z82.5 Family history of asthma and other chronic lower respiratory diseases; Z83.3 Family history of diabetes mellitus; M10.9 Gout, unspecified; Z86.010 Personal history of colon polyps
CPT/HCPCS: 36415; 43262; 74330; 76705; 80053; 80074; 81003; 82150; 83690; 85025; 85610; 88304; 96361; 96374; 96375; 99285

== ENCOUNTER → 2018-12-11 | Outpatient (CLI) | payer OTHER | END | disposition home or self-care (01) | LOC: CPPFTMAIN 07:57 | PROVIDERS: ATTEND Family Medicine | DX: R05 Cough (principal) | CPT/HCPCS: 94060; 94726; 94729 ==

== ENCOUNTER → 2021-01-26 | Outpatient (CLI) | payer OTHER ==
--- NOTE | 2021-01-26 13:15 | XR ---
EXAMINATION TYPE: XR chest 2V DATE OF EXAM: 01/26/2021 COMPARISON: Chest x-ray June 12, 2015 HISTORY: History of asthma with cough for 3 months. TECHNIQUE: Frontal and lateral views of the chest are obtained. FINDINGS: There is no suspicious new focal air space opacity, pleural effusion, or pneumothorax seen . The cardiac silhouette size is stable and upper limits of normal. Anterior bridging osteophytes in the mid to lower thoracic spine are present. IMPRESSION: No acute process.
--- NOTE | 2021-01-26 13:21 | XR ---
EXAMINATION TYPE: XR foot complete LT DATE OF EXAM: 01/26/2021 CLINICAL HISTORY: Swelling and pain. Bleeding from the fifth toe. TECHNIQUE: Frontal, lateral, and oblique images of the left foot are obtained. COMPARISON: None FINDINGS: There is no acute fracture/dislocation evident in the left foot. Large inferior and modera te size superior calcaneal spurs. Linear approximate 12 mm metallic foreign body or suspected needle fragment at level of the fifth proximal phalanx measured on the lateral view is identified on all nic ges. No adjacent bony destruction seen. Moderate diffuse subcutaneous edema noted. IMPRESSION: As above.
[2021-01-26 13:56] LABS: Basophils % (A) 1 %; Eosinophils # (A) 0.3 k/uL (0-0.7); Eosinophils % (A) 4 %; HCT 44.6 % (39.0-53.0); HGB 15.4 gm/dL (13.0-17.5); Lymphocytes # (A) 1.7 k/uL (1.0-4.8); Lymphocytes % (A) 26 %; MCHC 34.5 g/dL (31.0-37.0); MCV 95.7 fL (80.0-100.0); Mean Platelet Volume 7.5; Monocytes # (A) 0.6 k/uL (0-1.0); Monocytes % (A) 8 %; Neutrophils # (A) 4.1 k/uL (1.3-7.7); Neutrophils % (A) 60 %; Platelet Count 180 k/uL (150-450); RBC 4.66 m/uL (4.30-5.90); WBC 6.8 k/uL (3.8-10.6)
[2021-01-26 14:03] LABS: African American GFR (CKD) >90 (>60 ml/min/1.73 sqM); Anion Gap 6 mmol/L; Blood Urea Nitrogen 21 mg/dL (9-20); Calcium 9.3 mg/dL (8.4-10.2); Carbon Dioxide 32 mmol/L (22-30); Chloride 102 mmol/L (98-107); Glucose 109 mg/dL (74-99); Non-African American GFR(CKD) >90 (>60 ml/min/1.73 sqM); Potassium 4.5 mmol/L (3.5-5.1); Sodium 140 mmol/L (137-145); Uric Acid 5.9 mg/dL (3.5-8.5)
== END | disposition home or self-care (01) ==
LOC: RADXRMAIN 12:34
PROVIDERS: ATTEND Nurse Practitioner Family
DX: J45.20 Mild intermittent asthma, uncomplicated (principal); S99.922A Unspecified injury of left foot, initial encounter
CPT/HCPCS: 36415; 71046; 80048; 84550; 85025

== ENCOUNTER 2021-03-02 16:21 | Emergency (ER) | payer OTHER ==
[2021-03-02 19:35] VITALS: TEMP 98.8
--- NOTE | 2021-03-02 21:17 | ED ---
Skin/Abscess/FB HPI - General Chief complaint: Skin/Abscess/Foreign Body Stated complaint: Left Leg Infection Time Seen by Provider: 03/02/21 20:54 Source: patient, RN notes reviewed Mode of arrival: ambulatory Limitations: no limitations - History of Present Illness Initial comments: This is a pleasant 55-year-old male with a history of hypertension and obesity. He presents to the emergency department today stating that he didn't affect. Left little toe. Patient is on his second round of antibiotics. Patient currently taking Bactrim DS. Patient states she's been on that for about one week. Patient states that he started developing some discomfort and redness in his left lower leg earlier today. Patient denies any fever or chills. Patient had x-rays done as an outpatient was found that he has a foreign body in the subcutaneous tissue of his left little toe. Patient states this is likely been there for about 3 months. Be hypertensive in triage. Patient denies any symptoms related to hypertension. No chest pain. No shortness of breath. No edema otherwise. No headache. No change in vision or hearing. No numbness or tingling. No abdominal pain. No back pain. No skin rashes or lesions otherwise. - Related Data Home Medications Medication Instructions Recorded Confirmed Ibuprofen [Motrin] 800 mg PO BID PRN 06/11/15 03/02/21 Omeprazole [PriLOSEC] 20 mg PO AC-BRKFST 09/12/17 03/02/21 Metoprolol Succinate (ER) [Toprol 50 mg PO DAILY 03/02/21 03/02/21 Xl] Sulfamethox-Tmp 800-160Mg [Bactrim 1 tab PO BID 03/02/21 03/02/21 DS 800-160 mg] Previous Rx's Medication Instructions Recorded Cephalexin [Keflex] 500 mg PO Q6HR #40 cap 03/02/21 Allergies Allergy/AdvReac Type Severity Reaction Status Date / Time No Known Allergies Allergy Verified 03/02/21 21:51 Review of Systems ROS Statement: Those systems with pertinent positive or pertinent negative responses have been documented in the HPI. ROS Other: All systems not noted in ROS Statement are negative. Past Medical History Past Medical History: GERD/Reflux, Hypertension Additional Past Medical History / Comment(s): HERNIATED DISCS, VARICOSE VEINS, BRONCHITIS, UPPER RESP TRACT INFECTIONS,GOUT, RT LEG DICOLOARATION., History of Any Multi-Drug Resistant Organisms: None Reported Past Surgical History: Hernia Repair Additional Past Surgical History / Comment(s): EGD/COLONOSCOPY ONE SMALL POLYP REMOVED-BENIGN., UMBILCAL HERNIA REAPAIR. Additional Past Anesthesia/Blood Transfusion Reaction / Comment(s): -NO BLOOD PRODUCTS Past Psychological History: No Psychological Hx Reported Smoking Status: Never smoker Past Alcohol Use History: None Reported Past Drug Use History: None Reported - Past Family History Father Family Medical History: Cancer, COPD, Diabetes Mellitus, Prostate Disorder Additional Family Medical History / Comment(s): PROSTATE CANCER Mother Family Medical History: COPD, Hypertension General Exam - General Exam Comments Initial Comments: Obese 55-year-old male in no acute distress. Patient does not appear to be systemically ill or toxic. Adequately hydrated.. Patient noted to be hypertensive. We'll reevaluate. Capillary refill less than 2 seconds. Limitations: no limitations General appearance: alert, in no apparent distress Head exam: Present: atraumatic, normocephalic, normal inspection Eye exam: Present: normal appearance, PERRL, EOMI. Absent: scleral icterus, conjunctival injection, periorbital swelling ENT exam: Present: normal exam, mucous membranes moist Neck exam: Present: normal inspection. Absent: tenderness, meningismus, lymphad enopathy Respiratory exam: Present: normal lung sounds bilaterally. Absent: respiratory distress, wheezes, rales, rhonchi, stridor Cardiovascular Exam: Present: regular rate, normal rhythm, normal heart sounds. Absent: systolic murmur, diastolic murmur, rubs, gallop, clicks GI/Abdominal exam: Present: soft, normal bowel sounds. Absent: distended, tenderness, guarding, rebound, rigid Extremities exam: Present: full ROM, tenderness (Minimal tenderness left lower leg. Left toes are examined. No break in skin integrity. No definitive evidence of infectious process.), normal capillary refill, other (Patient has mild edema noted to the left lower ext. Patient has erythema involving the ante rior and posterior aspect of the left lower leg. This is not seemed to involve the foot. Distal sensation intact. Capillary refill less than 2 seconds. Pedal pulses are 2+ and 4.). Absent: joint swelling, calf tenderness Back exam: Present: normal inspection Neurological exam: Present: alert, oriented X3, CN II-XII intact Psychiatric exam: Present: normal affect, normal mood Skin exam: Present: warm, dry, intact, erythema (Erythema noted to the left lower leg, spares the foot. There is no lymphangitis. Negative Homans sign. No palpable cord. No break in skin integrity.). Absent: rash Course Vital Signs 03/02/21 03/02/21 19:32 23:30 Temperature 98.8 F Pulse Rate 91 72 Respiratory 18 16 Rate Blood Pressure 213/107 132/87 O2 Sat by Pulse 96 98 Oximetry Medical Decision Making - Lab Data Result diagrams: 03/02/21 21:40 03/02/21 21:40 Lab Results 03/02/21 03/02/21 Range/Units 21:40 21:40 WBC 7.5 (3.8-10.6) k/uL RBC 4.70 (4.30-5.90) m/uL Hgb 15.0 (13.0-17.5) gm/dL Hct 44.5 (39.0-53.0) % MCV 94.8 (80.0-100.0) fL MCH 32.0 (25.0-35.0) pg MCHC 33.8 (31.0-37.0) g/dL RDW 13.0 (11.5-15.5) % Plt Count 167 (150-450) k/uL MPV 7.5 Neutrophils % 63 % Lymphocytes % 23 % Monocytes % 7 % Eosinophils % 4 % Basophils % 1 % Neutrophils # 4.7 (1.3-7.7) k/uL Lymphocytes # 1.7 (1.0-4.8) k/uL Monocytes # 0.5 (0-1.0) k/uL Eosinophils # 0.3 (0-0.7) k/uL Basophils # 0.1 (0-0.2) k/uL Sodium 140 (137-145) mmol/L Potassium 4.6 (3.5-5.1) mmol/L Chloride 105 (98-107) mmol/L Carbon Dioxide 26 (22-30) mmol/L Anion Gap 9 mmol/L BUN 23 H (9-20) mg/dL Creatinine 0.80 (0.66-1.25) mg/dL Est GFR (CKD-EPI)AfAm >90 (>60 ml/min/1.73 sqM) Est GFR (CKD-EPI)NonAf >90 (>60 ml/min/1.73 sqM) Glucose 105 H (74-99) mg/dL Calcium 9.1 (8.4-10.2) mg/dL Total Bilirubin 1.5 H (0.2-1.3) mg/dL AST 63 H (17-59) U/L ALT 46 (4-49) U/L Alkaline Phosphatase 48 (38-126) U/L Total Protein 7.3 (6.3-8.2) g/dL Albumin 4.3 (3.5-5.0) g/dL - Radiology Data Radiology results: report reviewed, image reviewed Disposition Clinical Impression: Hypertension, poor control, Foreign body in soft tissue Disposition: HOME SELF-CARE Condition: Good Instructions (If sedation given, give patient instructions): Cellulitis (ED), Soft Tissue Foreign Body (ED), Hypertension (ED) Additional Instructions: Follow-up with your regular physician as directed. Return to the ER immediately if any symptoms worsen, new symptoms arise, or any other problems develop. Contact your regular doctor for blood pressure monitoring. Make an appointment with the sleep medicine physician as directed. Take the antibiotics as directed. If the swelling persists, he should have the venous Doppler repeated on the left leg in 1 week. Prescriptions: Cephalexin [Keflex] 500 mg PO Q6HR #40 cap Is patient prescribed a controlled substance at d/c from ED?: No Referrals: Henrry Ramon MD [Primary Care Provider] - 1-2 days Time of Disposition: 23:51
[2021-03-02 21:46] LABS: Basophils # (A) 0.1 k/uL (0-0.2); Basophils % (A) 1 %; Eosinophils # (A) 0.3 k/uL (0-0.7); Eosinophils % (A) 4 %; HCT 44.5 % (39.0-53.0); Lymphocytes # (A) 1.7 k/uL (1.0-4.8); Lymphocytes % (A) 23 %; MCHC 33.8 g/dL (31.0-37.0); MCV 94.8 fL (80.0-100.0); Mean Platelet Volume 7.5; Monocytes # (A) 0.5 k/uL (0-1.0); Monocytes % (A) 7 %; Neutrophils # (A) 4.7 k/uL (1.3-7.7); Neutrophils % (A) 63 %; Platelet Count 167 k/uL (150-450); WBC 7.5 k/uL (3.8-10.6)
[2021-03-02 21:55] LABS: ALT 46 U/L (4-49); AST 63 U/L (17-59); African American GFR (CKD) >90 (>60 ml/min/1.73 sqM); Albumin 4.3 g/dL (3.5-5.0); Alkaline Phosphatase 48 U/L (38-126); Anion Gap 9 mmol/L; Blood Urea Nitrogen 23 mg/dL (9-20); Calcium 9.1 mg/dL (8.4-10.2); Carbon Dioxide 26 mmol/L (22-30); Chloride 105 mmol/L (98-107); Glucose 105 mg/dL (74-99); Non-African American GFR(CKD) >90 (>60 ml/min/1.73 sqM); Potassium 4.6 mmol/L (3.5-5.1); Sodium 140 mmol/L (137-145); Total Bilirubin 1.5 mg/dL (0.2-1.3); Total Protein 7.3 g/dL (6.3-8.2)
--- NOTE | 2021-03-02 23:06 | US ---
EXAMINATION TYPE: US venous doppler duplex LE LT DATE OF EXAM: 03/02/2021 10:37 PM COMPARISON: [facility] 2014 CLINICAL HISTORY: Calf pain, swelling. Pain and swelling. No hx of DVT. Patient does not take blood t hinners. SIDE PERFORMED: Left TECHNIQUE: The lower extremity deep venous system is examined utilizing real time linear array sonog kelle with graded compression, doppler sonography and color-flow sonography. VESSELS IMAGED: Common Femoral Vein Deep Femoral Vein Greater Saphenous Vein * Femoral Vein Popliteal Vein Small Saphenous Vein * Proximal Calf Veins (* superficial vessels) Exam is very limited due to body habitus and pannus, patient 474 lbs. Left Leg: No evidence of DVT in veins imaged at this time, limited exam. Unable to clearly visualize prox calf veins. IMPRESSION: No evidence of deep vein thrombosis in the left leg.
[2021-03-02 23:30] VITALS: BP 132/87; PULSE 72; RESP 16
== END 2021-03-03 00:12 | disposition home or self-care (01) ==
LOC: EC 16:21
DX: M79.5 Residual foreign body in soft tissue (principal); I10 Essential (primary) hypertension; K21.9 Gastro-esophageal reflux disease without esophagitis
CPT/HCPCS: 99284; 96365; 36415; 80053; 85025; 87040; 93971; J0690

== ENCOUNTER 2022-07-28 17:22 | Observation (INO) | payer OTHER ==
--- NOTE | 2022-07-28 18:35 | ED ---
General Adult HPI - General Chief complaint: Upper Respiratory Infection Stated complaint: sob Time Seen by Provider: 07/28/22 18:15 Source: patient Mode of arrival: ambulatory Limitations: no limitations - History of Present Illness Initial comments: 57-year-old male with past history of recently diagnosed asthma who presents to the emergency department reporting cough and congestion. States the symptoms have been going on for the past 2 weeks. He was around his parents that had been diagnosed with pneumonia. Patient became sick and started having a fever. He went into [facility] earlier this week. He states that he had a chest x-ray performed. He was given a dose of antibiotics and steroids and sent home on no medications. Reports that he continues to have shortness of breath, chest pain, cough. He saw his primary in office today. They recorded that the patient had a pulse ox in the mid 80s. They recommended that he immediately go over to the hospital due to his hypoxia. Patient also reports to bilateral eye redness and drainage. Was prescribed antibiotic eyedrops however was unable to pick them up since he came straight to the hospital. He denies history of cardiac disease. No calf pain or swelling. No history of DVT or PE. No other alleviating, precipitating or modifying factors - Related Data Home Medications Medication Instructions Recorded Confirmed Ibuprofen [Motrin] 800 mg PO BID PRN 06/11/15 07/28/22 Omeprazole [PriLOSEC] 20 mg PO DAILY 09/12/17 07/28/22 Acetaminophen Tab [Tylenol Tab] 1,000 mg PO Q6HR PRN 07/28/22 07/28/22 Fluticasone Propionate 110 Mcg 1 puff INHALATION RT-BID 07/28/22 07/28/22 [Flovent 110 Mcg Inhaler] Furosemide [Lasix] 20 mg PO DAILY 07/28/22 07/28/22 Metoprolol Succinate (ER) [Toprol 100 mg PO DAILY 07/28/22 07/28/22 Xl] guaiFENesin SYRUP 100MG/5ML 400 mg PO Q4H PRN 07/28/22 07/28/22 [Robitussin] lisinopriL [Zestril] 10 mg PO DAILY 07/28/22 07/28/22 predniSONE 50 mg PO DAILY 07/28/22 07/28/22 Allergies Allergy/AdvReac Type Severity Reaction Status Date / Time No Known Allergies Allergy Verified 07/28/22 18:20 Review of Systems ROS Statement: Those systems with pertinent positive or pertinent negative responses have been documented in the HPI. ROS Other: All systems not noted in ROS Statement are negative. Past Medical History Past Medical History: Asthma, GERD/Reflux, Hypertension Additional Past Medical History / Comment(s): HERNIATED DISCS, VARICOSE VEINS, BRONCHITIS, UPPER RESP TRACT INFECTIONS,GOUT, RT LEG DICOLOARATION., History of Any Multi-Drug Resistant Organisms: None Reported Past Surgical History: Hernia Repair Additional Past Surgical History / Comment(s): EGD/COLONOSCOPY ONE SMALL POLYP REMOVED-BENIGN., UMBILCAL HERNIA REAPAIR. Additional Past Anesthesia/Blood Transfusion Reaction / Comment(s): -NO BLOOD PRODUCTS Past Psychological History: No Psychological Hx Reported Smoking Status: Never smoker Past Alcohol Use History: None Reported Past Drug Use History: None Reported - Past Family History Father Family Medical History: Cancer, COPD, Diabetes Mellitus, Prostate Disorder Additional Family Medical History / Comment(s): PROSTATE CANCER Mother Family Medical History: COPD, Hypertension General Exam Limitations: no limitations General appearance: alert, in no apparent distress Head exam: Present: atraumatic, normocephalic, normal inspection Eye exam: Present: normal appearance, PERRL, EOMI. Absent: scleral icterus, conjunctival injection, periorbital swelling ENT exam: Present: normal exam, mucous membranes moist Neck exam: Present: normal inspection. Absent: tenderness, meningismus, lymphadenopathy Respiratory exam: Present: wheezes, other (Tachypnea). Absent: respiratory distress, rales, rhonchi, stridor Cardiovascular Exam: Present: regular rate, normal rhythm, normal heart sounds. Absent: systolic murmur, diastolic murmur, rubs, gallop, clicks GI/Abdominal exam: Present: soft, normal bowel sounds. Absent: distended, t enderness, guarding, rebound, rigid Extremities exam: Present: normal inspection, full ROM, normal capillary refill. Absent: tenderness, pedal edema, joint swelling, calf tenderness Back exam: Present: normal inspection Neurological exam: Present: alert, oriented X3, CN II-XII intact Psychiatric exam: Present: normal affect, normal mood Skin exam: Present: warm, dry, intact, normal color. Absent: rash Course Vital Signs 07/28/22 07/28/2207/28/23 17:41 18:05 20:09 Temperature 98.0 F Pulse Rate 94 Respiratory 34 H 32 H Rate Blood Pressure 119/74 O2 Sat by Pulse 91 L 86 L Oximetry 07/28/22 07/28/22 07/28/22 20:10 22:03 22:15 Temperature Pulse Rate 80 91 Respiratory Rate Blood Pressure O2 Sat by Pulse 92 L Oximetry 07/28/22 22:16 Temperature Pulse Rate 97 Respiratory 18 Rate Blood Pressure 110/67 O2 Sat by Pulse 95 Oximetry Medical Decision Making - Medical Decision Making Was pt. sent in by a medical professional or institution (, PA, WIRELESS SALES REPRESENTATIVE, urgent care, hospital, or fci...) When possible be specific @ -Yes patient was sent in from his primary care office Did you speak to anyone other than the patient for history (EMS, parent, family, police, friend...)? What history was obtained from this source @ -I spoke with the patient's sister Did you review nursing and triage notes (agree or disagree)? Why? @ -I reviewed and agree with nursing and triage notes Were old charts reviewed (outside hosp., previous admission, EMS record, old EKG, old radiological studies, urgent care reports/EKG's, fci records)? Report findings @ -No old charts were reviewed Differential Diagnosis (chest pain, altered mental status, abdominal pain women, abdominal pain men, vaginal bleeding, weakness, fever, dyspnea, syncope, headache, dizziness, GI bleed, back pain, seizure, CVA, palpatations, mental h ealth, musculoskeletal)? @ -Differential Dyspnea: Coronary syndrome, arrhythmia, tamponade, asthma, COPD, pulmonary embolism, pneumonia, pneumothorax, pulmonary effusion, anaphylaxis, diabetic ketoacidosis, flailed chest, pulmonary contusion, diaphragmatic rupture, anemia, neuro muscular, this is not meant to be an all-inclusive list. EKG interpreted by me (3pts min.). @ -Yes and demonstrates sinus rhythm with a rate of 90. HI interval 129. QRS 102. QTC of 388. No acute ST segment elevation or depression. Some baseline artifact in V4 V5 X-rays interpreted by me (1pt min.). @ -Yes and demonstrates bilateral multifocal opacities CT interpreted by me (1pt min.). @ -None done U/S interpreted by me (1pt. min.). @ -None done What testing was considered but not performed or refused? (CT, X-rays, U/S, labs)? Why? @ -None What meds were considered but not given or refused? Why? @ -None Did you discuss the management of the patient with other professionals (professionals i.e. , PA, WIRELESS SALES REPRESENTATIVE, lab, RT, psych nurse, criminal justice social worker, telecommunications consultant, teacher, electronic warfare officer, caser up)? Give summary @ -I spoke with Dr. Bernabe in regards to the patients care. he will admit the patient Was smoking cessation discussed for >3mins.? @ -No Was critical care preformed (if so, how long)? @ -No Were there social determinants of health that impacted care today? How? (Homelessness, low income, unemployed, alcoholism, drug addiction, transportation, low edu. Level, literacy, decrease access to med. care, long-term, rehab)? @ -No Was there de-escalation of care discussed even if they declined (Discuss DNR or withdrawal of care, Hospice)? DNR status @ -No What co-morbidities impacted this encounter? (DM, HTN, Smoking, COPD, CAD, Cancer, CVA, ARF, Chemo, Hep., AIDS, mental health diagnosis, sleep apnea, morbid obesity)? @ -asthma Was patient admitted / discharged? Hospital course, mention meds given and route, prescriptions, significant lab abnormalities, going to OR and other pertinent info. @ -Upon arrival patient is placed in room 24. A thorough history and physical exam was performed. IV is established and laboratory studies are conducted. Chest x-rays performed. Chest x-ray demonstrates multifocal opacities consistent with possible congestive heart failure versus atelectasis. As the patient does have productive cough and reported fever I did cover him with antibiotics. Breathing treatments are ordered. I will also treat the patient for asthma exacerbation with steroids. As the patient is requiring oxygen I will admit the patient for pulmonology consultation. Patient was agreeable to this. Spoke with Dr. Bernabe who will admit the patient Undiagnosed new problem with uncertain prognosis? @ -Yes Drug Therapy requiring intensive monitoring for toxicity (Heparin, Nitro, Insulin, Cardizem)? @ -No Were any procedures done? @ -No Diagnosis/symptom? @ -Acute hypoxic respiratory failure, suspected pneumonia, asthma exacerbation Acute, or Chronic, or Acute on Chronic? @ -Acute on chronic Uncomplicated (without systemic symptoms) or Complicated (systemic symptoms)? @ -Complicated Side effects of treatment? @ -No Exacerbation, Progression, or Severe Exacerbation? @ -Exacerbation Poses a threat to life or bodily function? How? (Chest pain, [place], [place], pneumonia, PE, COPD, DKA, ARF, appy, cholecystitis, CVA, Diverticulitis, Homicidal, Suicidal, threat to staff... and all critical care pts) @ -Yes patient was hypoxic which can lead to cardiac and respiratory arrest - Lab Data Result diagrams: 07/28/22 19:32 07/28/22 19:32 Lab Results 07/28/22 07/28/22 07/28/22 Range/Units 18:35 19:32 19:32 WBC 9.9 (3.8-10.6) k/uL RBC 4.55 (4.30-5.90) m/uL Hgb 14.4 (13.0-17.5) gm/dL Hct 42.1 (39.0-53.0) % MCV 92.6 (80.0-100.0) fL MCH 31.7 (25.0-35.0) pg MCHC 34.2 (31.0-37.0) g/dL RDW 13.3 (11.5-15.5) % Plt Count 205 (150-450) k/uL MPV 7.7 Neutrophils % 89 % Lymphocytes % 8 % Monocytes % 3 % Eosinophils % 0 % Basophils % 0 % Neutrophils # 8.7 H (1.3-7.7) k/uL Lymphocytes # 0.8 L (1.0-4.8) k/uL Monocytes # 0.3 (0-1.0) k/uL Eosinophils # 0.0 (0-0.7) k/uL Basophils # 0.0 (0-0.2) k/uL PT 10.5 (9.0-12.0) sec INR 1.0 (<1.2) APTT 24.4 (22.0-30.0) sec Sodium (137-145) mmol/L Potassium (3.5-5.1) mmol/L Chloride (98-107) mmol/L Carbon Dioxide (22-30) mmol/L Anion Gap mmol/L BUN (9-20) mg/dL Creatinine (0.66-1.25) mg/dL Est GFR (CKD-EPI)AfAm (>60 ml/min/1.73 sqM) Est GFR (CKD-EPI)NonAf (>60 ml/min/1.73 sqM) Glucose (74-99) mg/dL Plasma Lactic Acid Jaime (0.7-2.0) mmol/L Calcium (8.4-10.2) mg/dL Total Bilirubin (0.2-1.3) mg/dL AST (17-59) U/L ALT (4-49) U/L Alkaline Phosphatase (38-126) U/L Troponin I (0.000-0.034) ng/mL NT-Pro-B Natriuret Pep pg/mL Total Protein (6.3-8.2) g/dL Albumin (3.5-5.0) g/dL Influenza Type A (PCR) Not Detected (Not Detectd) Influenza Type B (PCR) Not Detected (Not Detectd) RSV (PCR) Not Detected (Not Detectd) SARS-CoV-2 (PCR) Not Detected (Not Detectd) 07/28/22 07/28/22 07/28/22 Range/Units 19:32 19:32 19:32 WBC (3.8-10.6) k/uL RBC (4.30-5.90) m/uL Hgb (13.0-17.5) gm/dL Hct (39.0-53.0) % MCV (80.0-100.0) fL MCH (25.0-35.0) pg MCHC (31.0-37.0) g/dL RDW (11.5-15.5) % Plt Count (150-450) k/uL MPV Neutrophils % % Lymphocytes % % Monocytes % % Eosinophils % % Basophils % % Neutrophils # (1.3-7.7) k/uL Lymphocytes # (1.0-4.8) k/uL Monocytes # (0-1.0) k/uL Eosinophils # (0-0.7) k/uL Basophils # (0-0.2) k/uL PT (9.0-12.0) sec INR (<1.2) APTT (22.0-30.0) sec Sodium 138 (137-145) mmol/L Potassium 4.6 (3.5-5.1) mmol/L Chloride 104 (98-107) mmol/L Carbon Dioxide 26 (22-30) mmol/L Anion Gap 8 mmol/L BUN 24 H (9-20) mg/dL Creatinine 0.74 (0.66-1.25) mg/dL Est GFR (CKD-EPI)AfAm >90 (>60 ml/min/1.73 sqM) Est GFR (CKD-EPI)NonAf >90 (>60 ml/min/1.73 sqM) Glucose 262 H (74-99) mg/dL Plasma Lactic Acid Jaime 2.0 (0.7-2.0) mmol/L Calcium 8.6 (8.4-10.2) mg/dL Total Bilirubin 1.4 H (0.2-1.3) mg/dL AST 37 (17-59) U/L ALT 33 (4-49) U/L Alkaline Phosphatase 51 (38-126) U/L Troponin I <0.012 (0.000-0.034) ng/mL NT-Pro-B Natriuret Pep pg/mL Total Protein 6.7 (6.3-8.2) g/dL Albumin 3.8 (3.5-5.0) g/dL Influenza Type A (PCR) (Not Detectd) Influenza Type B (PCR) (Not Detectd) RSV (PCR) (Not Detectd) SARS-CoV-2 (PCR) (Not Detectd) 07/28/22 Range/Units 19:32 WBC (3.8-10.6) k/uL RBC (4.30-5.90) m/uL Hgb (13.0-17.5) gm/dL Hct (39.0-53.0) % MCV (80.0-100.0) fL MCH (25.0-35.0) pg MCHC (31.0-37.0) g/dL RDW (11.5-15.5) % Plt Count (150-450) k/uL MPV Neutrophils % % Lymphocytes % % Monocytes % % Eosinophils % % Basophils % % Neutrophils # (1.3-7.7) k/uL Lymphocytes # (1.0-4.8) k/uL Monocytes # (0-1.0) k/uL Eosinophils # (0-0.7) k/uL Basophils # (0-0.2) k/uL PT (9.0-12.0) sec INR (<1.2) APTT (22.0-30.0) sec Sodium (137-145) mmol/L Potassium (3.5-5.1) mmol/L Chloride (98-107) mmol/L Carbon Dioxide (22-30) mmol/L Anion Gap mmol/L BUN (9-20) mg/dL Creatinine (0.66-1.25) mg/dL Est GFR (CKD-EPI)AfAm (>60 ml/min/1.73 sqM) Est GFR (CKD-EPI)NonAf (>60 ml/min/1.73 sqM) Glucose (74-99) mg/dL Plasma Lactic Acid Jaime (0.7-2.0) mmol/L Calcium (8.4-10.2) mg/dL Total Bilirubin (0.2-1.3) mg/dL AST (17-59) U/L ALT (4-49) U/L Alkaline Phosphatase (38-126) U/L Troponin I (0.000-0.034) ng/mL NT-Pro-B Natriuret Pep 91 pg/mL Total Protein (6.3-8.2) g/dL Albumin (3.5-5.0) g/dL Influenza Type A (PCR) (Not Detectd) Influenza Type B (PCR) (Not Detectd) RSV (PCR) (Not Detectd) SARS-CoV-2 (PCR) (Not Detectd) Disposition Clinical Impression: Hypoxia, Asthma, Community acquired pneumonia Disposition: ADMITTED IP TO THIS [facility] Condition: Stable Is patient prescribed a controlled substance at d/c from ED?: No Time of Disposition: 21:06 Decision to Admit Reason: Admit from EC Decision Date: 07/28/22 Decision Time: 21:06
--- NOTE | 2022-07-28 19:22 | XR ---
EXAMINATION TYPE: XR chest 2V DATE OF EXAM: 07/28/2022 7:10 PM COMPARISON: Chest radiographs from 01/26/2023. TECHNIQUE: XR chest 2V Frontal and lateral views of the chest. CLINICAL INDICATION:Male, 57 years old with history of difficulty breathing; FINDINGS: Lungs/Pleura: Low lung volumes are present. There is no evidence of pleural effusion, focal consolida tion, or pneumothorax. Pulmonary vascularity: Unremarkable. Heart/mediastinum: Cardiomediastinal silhouette is enlarged and stable. Musculoskeletal: No acute osseous pathology. IMPRESSION: Low lung volumes with a generalized hazy appearance which could represent atelectasis versus pulmonar y edema correlate with serum BNP.
[2022-07-28 20:03] LABS: ALT 33 U/L (4-49); AST 37 U/L (17-59); African American GFR (CKD) >90 (>60 ml/min/1.73 sqM); Albumin 3.8 g/dL (3.5-5.0); Alkaline Phosphatase 51 U/L (38-126); Anion Gap 8 mmol/L; Blood Urea Nitrogen 24 mg/dL (9-20); Calcium 8.6 mg/dL (8.4-10.2); Carbon Dioxide 26 mmol/L (22-30); Chloride 104 mmol/L (98-107); Glucose 262 mg/dL (74-99); Non-African American GFR(CKD) >90 (>60 ml/min/1.73 sqM); Potassium 4.6 mmol/L (3.5-5.1); Sodium 138 mmol/L (137-145); Total Bilirubin 1.4 mg/dL (0.2-1.3); Total Protein 6.7 g/dL (6.3-8.2)
[2022-07-28 20:19] LABS: Basophils % (A) 0 %; Eosinophils % (A) 0 %; HCT 42.1 % (39.0-53.0); HGB 14.4 gm/dL (13.0-17.5); Lymphocytes # (A) 0.8 k/uL (1.0-4.8); Lymphocytes % (A) 8 %; MCH 31.7 pg (25.0-35.0); MCHC 34.2 g/dL (31.0-37.0); MCV 92.6 fL (80.0-100.0); Mean Platelet Volume 7.7; Monocytes # (A) 0.3 k/uL (0-1.0); Monocytes % (A) 3 %; Neutrophils # (A) 8.7 k/uL (1.3-7.7); Neutrophils % (A) 89 %; Platelet Count 205 k/uL (150-450); RBC 4.55 m/uL (4.30-5.90); RDW 13.3 % (11.5-15.5); WBC 9.9 k/uL (3.8-10.6)
[2022-07-28 20:28] LABS: Partial Thromboplastin Time 24.4 sec (22.0-30.0); Prothrombin Time 10.5 sec (9.0-12.0)
[2022-07-28] MEDS ORDERED: IPRATROPIUM-ALBUTEROL 3 ML NEB INHALATION STA (20:53)
[2022-07-28] MEDS ORDERED: methylPREDNISolone SOD SUCCI 125 MG/2 ML VIAL IV STA (20:53)
[2022-07-28] MEDS ORDERED: IPRATROPIUM-ALBUTEROL 3 ML NEB INHALATION PRN (21:03)
[2022-07-28] MEDS ORDERED: PNEUMONIA PROTOCOL UTILIZED 1 EACH MISC PO PRN (21:03)
[2022-07-28] MEDS ORDERED: AZITHROMYCIN 500 MG in SODIUM CHLORIDE 0.9% 250 ML IVPB STA (21:03)
[2022-07-28] MEDS ORDERED: IBUPROFEN 800 MG TAB PO PRN (21:06)
[2022-07-29] MEDS: ACETAMINOPHEN TAB 500 MG TAB PO PRN ×2 (00:10→06:35)
[2022-07-29] MEDS: guaiFENesin SYRUP 100MG/5ML 200 MG/10 ML CUP PO PRN ×4 (00:19→20:54)
[2022-07-29] MEDS: PANTOPRAZOLE 40 MG TABLET PO SCH (07:25)
[2022-07-29] MEDS: FLUTICASONE 110 MCG INHALER INHALATION SCH ×2 (07:46→19:52)
[2022-07-29] MEDS: METOPROLOL SUCCINATE (ER) 100 MG TAB.ER.24H PO SCH (08:19)
[2022-07-29] MEDS: FUROSEMIDE 20 MG TAB PO SCH ×2 (08:19→17:01)
--- NOTE | 2022-07-29 08:19 | XR ---
EXAMINATION TYPE: XR chest 1V DATE OF EXAM: 07/29/2022 5:08 AM COMPARISON: Chest radiographs from 07/28/2022 TECHNIQUE: XR chest 1V Frontal view of the chest. CLINICAL INDICATION:Male, 57 years old with history of pneumonia; FINDINGS: Lungs/Pleura: Low lung volumes are present. There is no evidence of pleural effusion, focal consolida tion, or pneumothorax. Pulmonary vascularity: Unremarkable. Heart/mediastinum: Cardiomediastinal silhouette is unremarkable. Musculoskeletal: No acute osseous pathology. Other findings: None IMPRESSION: No significant change given differences in technique, Low lung volumes with a generalized hazy appear ance.
[2022-07-29] MEDS: lisinopriL 10 MG TAB PO SCH ×2 (08:20→10:42)
[2022-07-29] MEDS: LOSARTAN 50 MG TAB PO SCH (10:33)
[2022-07-29] MEDS: IPRATROPIUM-ALBUTEROL 3 ML NEB INHALATION SCH ×3 (11:38→19:50)
[2022-07-29] MEDS: methylPREDNISolone SOD SUCCI 125 MG/2 ML VIAL IV SCH ×2 (12:03→18:28)
[2022-07-29] MEDS: ENOXAPARIN 40 MG/0.4 ML SYRINGE SQ SCH (14:17)
[2022-07-29 14:25] LABS: Glucose,Whole Blood 267 mg/dL (70-110)
[2022-07-29] MEDS ORDERED: INSULIN ASPART (NovoLOG) 100 UNIT/ML VIAL SQ PRN (15:03)
--- NOTE | 2022-07-29 15:06 | P.CNPUL ---
History of Present Illness Consult date: 07/29/22 Requesting physician: Cirilo Bernabe Reason for consult: dyspnea, asthma Chief complaint: Shortness of breath, cough, congestion History of present illness: This is a very pleasant morbidly obese 57-year-old male patient with a history of mild intermittent chronic bronchial asthma, lifelong nonsmoker, hypertension, gastroesophageal reflux disease, lower extremity peripheral edema who had recen tly been having issues with increasing shortness of breath cough congestion chest tightness since cutting the grass approximately a week ago. He had also recently been started on lisinopril. He had been seen at [facility] and was treated with antibiotics and steroids. He also followed up with his PCP who found his O2 saturations in the 80s and was recommended evaluation in our emergency room yesterday. 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 Chest x-ray revealed low lung volumes with no evidence of pleural effusion, focal consolidation or pneumothorax. White count 9.9. Hemoglobin 14.4. Platelets 205. Sodium 138. Potassium 4.6. Bicarb 26. BUN 24. Creatinine 0.74. Glucose 262. Troponin negative 1. Influenza screen negative. RSV screen negative. COVID-19 screen negative. Review of Systems REVIEW OF SYSTEMS: CONSTITUTIONAL: Denies any recent significant weight loss or weight gain. EYES: Denies change in vision. EARS, NOSE, MOUTH, THROAT: Denies headaches, denies sore throat. CARDIOVASCULAR: Denies chest pain, palpitations or syncopal episodes. RESPIRATORY: u shortness of breath, cough, congestion no hemoptysis. GASTROINTESTINAL: Denies change in appetite, denies abdominal pain GENITOURINARY: Denies hematuria, denies infections. MUSKULOSKELETAL: Denies pain, denies swelling. INTEGUMENTARY: Denies rash, denies eczema. NEUROLOGICAL: Denies recent memory loss, no recent seizure activity. PSYCHIATRIC: Denies anxiety, denies depression. HEMATOLOGIC/LYMPHATIC: Denies anemia, denies enlarged lymph nodes. Past Medical History Past Medical History: Asthma, GERD/Reflux, Hypertension, Pneumonia Additional Past Medical History / Comment(s): HERNIATED DISCS, VARICOSE VEINS, BRONCHITIS, UPPER RESP TRACT INFECTIONS,GOUT, RT LEG DICOLOARATION., Mobid obesity, Bronchitis History of Any Multi-Drug Resistant Organisms: None Reported Past Surgical History: Hernia Repair Additional Past Surgical History / Comment(s): EGD/COLONOSCOPY ONE SMALL POLYP REMOVED-BENIGN., UMBILCAL HERNIA REAPAIR. Additional Past Anesthesia/Blood Transfusion Reaction / Comment(s): -NO BLOOD PRODUCTS Past Psychological History: No Psychological Hx Reported Smoking Status: Never smoker Past Alcohol Use History: None Reported Past Drug Use History: None Reported - Past Family History Father Family Medical History: Cancer, COPD, Diabetes Mellitus, Prostate Disorder Additional Family Medical History / Comment(s): PROSTATE CANCER Mother Family Medical History: COPD, Hypertension Medications and Allergies Home Medications Medication Instructions Recorded Confirmed Type Ibuprofen [Motrin] 800 mg PO BID PRN 06/11/15 07/28/22 History Omeprazole [PriLOSEC] 20 mg PO DAILY 09/12/17 07/28/22 History Acetaminophen Tab [Tylenol Tab] 1,000 mg PO Q6HR PRN 07/28/22 07/28/22 History Fluticasone Propionate 110 Mcg 1 puff INHALATION RT-BID 07/28/22 07/28/22 History [Flovent 110 Mcg Inhaler] Furosemide [Lasix] 20 mg PO DAILY 07/28/22 07/28/22 History Metoprolol Succinate (ER) [Toprol 100 mg PO DAILY 07/28/22 07/28/22 History Xl] guaiFENesin SYRUP 100MG/5ML 400 mg PO Q4H PRN 07/28/22 07/28/22 History [Robitussin] lisinopriL [Zestril] 10 mg PO DAILY 07/28/22 07/28/22 History predniSONE 50 mg PO DAILY 07/28/22 07/28/22 History Allergies Allergy/AdvReac Type Severity Reaction Status Date / Time No Known Allergies Allergy Verified 07/28/22 18:20 Physical Exam Vitals: Vital Signs Temp Pulse Resp BP Pulse Ox 07/29/22 14:00 82 121/74 93 L 07/29/22 13:00 89 136/98 93 L 07/29/22 12:00 92 157/85 92 L 07/29/22 11:49 84 18 07/29/22 11:38 81 18 07/29/22 11:00 124/66 07/29/22 10:00 76 103/81 92 L 07/29/22 09:00 83 119/73 07/29/22 08:00 76 111/61 93 L 07/29/22 07:48 93 L 07/29/22 07:32 98.5 F 87 22 111/61 95 07/29/22 07:00 78 142/88 89 L 07/29/22 06:06 100.0 F H 100 22 142/66 96 07/29/22 05:00 70 24 119/69 07/29/22 04:05 76 18 119/69 97 07/29/22 03:00 74 25 H 104/74 90 L 07/29/22 02:05 98.4 F 78 15 104/74 93 L 07/29/22 01:00 86 19 130/78 95 07/28/22 23:57 100.8 F H 92 20 130/78 93 L 07/28/22 22:16 97 18 110/67 95 07/28/22 22:15 91 07/28/22 22:03 80 07/28/22 22:00 85 22 118/66 94 L 07/28/22 21:00 90 26 H 134/87 94 L 07/28/22 20:10 92 L 07/28/22 20:09 86 L 07/28/22 18:05 32 H 07/28/22 17:41 98.0 F 94 34 H 119/74 91 L Intake and Output 07/28/22 07/29/22 07/29/22 22:59 06:59 14:59 Other: Weight 215.003 kg GENERAL EXAM: Alert, morbidly obese 57-year-old male, 3 L nasal cannula, comfortable in no apparent distress. HEAD: Normocephalic. EYES: Normal reaction of pupils, equal size. NOSE: Clear with pink turbinates. THROAT: No erythema or exudates. NECK: No masses, no JVD. CHEST: No chest wall deformity. LUNGS: Equal air entry with few scattered rhonchi. CVS: S1 and S2 normal with no audible murmur, regular rhythm. ABDOMEN: No hepatosplenomegaly, normal bowel sounds, no guarding or rigidity. SPINE: No scoliosis or deformity SKIN: No rashes CENTRAL NERVOUS SYSTEM: No focal deficits, tone is normal in all 4 extremities. EXTREMITIES: There is 1+ peripheral edema. Changes of chronic venous stasis. No clubbing, no cyanosis. Peripheral pulses are intact. Results - Laboratory Findings CBC and BMP: 07/28/22 19:32 07/28/22 19:32 PT/INR, D-dimer PT 10.5 sec (9.0-12.0) 07/28/22 19:32 INR 1.0 (<1.2) 07/28/22 19:32 Abnormal lab findings: Abnormal Labs 07/28/22 07/28/22 06 19:32 19:32 14:24 Neutrophils # 8.7 H Lymphocytes # 0.8 L BUN 24 H Glucose 262 H POC Glucose (mg/dL) 267 H Total Bilirubin 1.4 H - Diagnostic Findings Chest x-ray: image reviewed Assessment and Plan Assessment: Acute exacerbation of suspected mild intermittent chronic bronchial asthma. No clear evidence of pneumonia. Failed outpatient therapy. Acute hypoxemic respiratory failure secondary to above Morbid obesity with a BMI of 66 kg per metered square Suspected obstructive sleep apnea/obesity/hypoventilation syndrome Hyperglycemia without diabetes mellitus Hypertension and recently initiated on lisinopril Gastroesophageal reflux disease Lifelong nonsmoker Plan: The patient was seen and evaluated Chest x-ray, labs and medications reviewed Check a pro-calcitonin Continue empiric antibiotics for now Check a hemoglobin A1c Discontinue lisinopril Initiate losartan Continue bronchodilators Would benefit from outpatient sleep study We will continue to follow and make further recommendations based on his cl inical status I have personally seen and examined the patient, performed the documentation and the assessment and plan as written. Number of minutes spent on the visit: 20.
--- NOTE | 2022-07-29 16:43 | P.HPIM ---
History of Present Illness H&P Date: 07/29/22 Chief Complaint: Short of breath This is a pleasant 57-year-old patient who follows with Dr. Ramon. Chronic stable stable medical conditions include hypertension, arthritis, GERD, obesity. For about 2 weeks patient been having increasing shortness of breath. Cough. Green sputum. Some nasal drainage. Has been having fever and chills off and on. Appetite is fair. No change in bowel pattern. No skin rash. Patient is accompanied by sister in the hospital. Review of systems: GEN.: Tired fever and chills EYES: None HEENT: None NECK: None RESPIRATORY: As above CARDIOVASCULAR: None GASTROINTESTINAL: None GENITOURINARY: None MUSCULOSKELETAL: Joint pains especially lower back LYMPHATICS: None HEMATOLOGICAL: None PSYCHIATRY: None NEUROLOGICAL: None Past medical history to include: Asthma, GERD, hypertension, herniated disc, varicose veins, gout, morbid obesity Social history: Patient is to his mother. No smoking or alcohol. Not employed Physical examination: VITAL SIGNS: 98, 94, 34, 199/74, 86% on 2 L upon presentation GENERAL: BMI 66.1, sitting at edge of the bed, short of breath. EYES: Pupils equal. Conjunctiva normal. HEENT: External appearance of nose and ears normal, oral cavity grossly normal. NECK: JVD not raised; masses not palpable. HEART: First and second heart sounds are normal; no edema. LUNGS: Respiratory rate increased; creased breath sounds, some wheezing. ABDOMEN: Soft, nontender, liver spleen not palpable, no masses palpable. PSYCH: Alert and oriented x3; mood and affect normal. MUSCULOSKELETAL:No Clubbing/cyanosis;muscles-grossly intact NEUROLOGICAL: Cranial nerves grossly intact; no facial asymmetry, power and sensation grossly intact. LYMPHATICS: No lymph nodes palpable in the axilla and neck INVESTIGATIONS, reviewed in the clinical context: White count 9.9 hemoglobin 14.4 platelets 205 sodium 138 potassium 4.6 BUN 24 creatinine 0.74 Procalcitonin 0.05 Influenza type A, B, urine Legionella antigen, RNC, COVID-19: Not detected EKG tracing personally reviewed by me-normal sinus rhythm. Chest x-ray film personally reviewed by me-no penetration. Assessment and plan: -Acute exacerbation of intermittent asthma secondary to tracheobronchitis DuoNeb, Symbicort, IV Solu-Medrol -Acute rhinosinusitis./Tracheal bronchitis Claritin-D 1 tablet twice a day. IV ceftriaxone -Essential hypertension Toprol-XL, Zestril -GERD Prilosec -Osteoarthritis including low back pain Motrin when necessary. -Morbid obesity BMI 66.1 Weight loss measures Care was discussed with the patient and sister the bedside. Pulmonary consulted. Past Medical History Past Medical History: Asthma, GERD/Reflux, Hypertension, Pneumonia Additional Past Medical History / Comment(s): HERNIATED DISCS, VARICOSE VEINS, BRONCHITIS, UPPER RESP TRACT INFECTIONS,GOUT, RT LEG DICOLOARATION., Mobid obesity, Bronchitis History of Any Multi-Drug Resistant Organisms: None Reported Past Surgical History: Hernia Repair Additional Past Surgical History / Comment(s): EGD/COLONOSCOPY ONE SMALL POLYP REMOVED-BENIGN., UMBILCAL HERNIA REAPAIR. Additional Past Anesthesia/Blood Transfusion Reaction / Comment(s): -NO BLOOD PRODUCTS Past Psychological History: No Psychological Hx Reported Smoking Status: Never smoker Past Alcohol Use History: None Reported Past Drug Use History: None Reported - Past Family History Father Family Medical History: Cancer, COPD, Diabetes Mellitus, Prostate Disorder Additional Family Medical History / Comment(s): PROSTATE CANCER Mother Family Medical History: COPD, Hypertension Medications and Allergies Home Medications Medication Instructions Recorded Confirmed Type Ibuprofen [Motrin] 800 mg PO BID PRN 06/11/15 07/28/22 History Omeprazole [PriLOSEC] 20 mg PO DAILY 09/12/17 07/28/22 History Acetaminophen Tab [Tylenol Tab] 1,000 mg PO Q6HR PRN 07/28/22 07/28/22 History Fluticasone Propionate 110 Mcg 1 puff INHALATION RT-BID 07/28/22 07/28/22 History [Flovent 110 Mcg Inhaler] Furosemide [Lasix] 20 mg PO DAILY 07/28/22 07/28/22 History Metoprolol Succinate (ER) [Toprol 100 mg PO DAILY 07/28/22 07/28/22 History Xl] guaiFENesin SYRUP 100MG/5ML 400 mg PO Q4H PRN 07/28/22 07/28/22 History [Robitussin] lisinopriL [Zestril] 10 mg PO DAILY 07/28/22 07/28/22 History predniSONE 50 mg PO DAILY 07/28/22 07/28/22 History Allergies Allergy/AdvReac Type Severity Reaction Status Date / Time No Known Allergies Allergy Verified 07/28/22 18:20 Physical Exam Vitals: Vital Signs Temp Pulse Resp BP Pulse Ox 07/29/22 07:48 93 L 07/29/22 07:32 98.5 F 87 22 111/61 95 07/29/22 06:06 100.0 F H 100 22 142/66 96 07/29/22 04:05 76 18 119/69 97 07/29/22 02:05 98.4 F 78 15 104/74 93 L 07/28/22 23:57 100.8 F H 92 20 130/78 93 L 07/28/22 22:16 97 18 110/67 95 07/28/22 22:15 91 07/28/22 22:03 80 07/28/22 22:00 85 22 118/66 94 L 07/28/22 21:00 90 26 H 134/87 94 L 07/28/22 20:10 92 L 07/28/22 20:09 86 L 07/28/22 18:05 32 H 07/28/22 17:41 98.0 F 94 34 H 119/74 91 L Intake and Output 07/28/22 07/29/22 07/29/22 22:59 06:59 14:59 Other: Weight 215.003 kg Results CBC & Chem 7: 07/28/22 19:32 07/28/22 19:32 Labs: Abnormal Lab Results - Last 24 Hours (Table) 07/28/22 07/28/22 Range/Units 19:32 19:32 Neutrophils # 8.7 H (1.3-7.7) k/uL Lymphocytes # 0.8 L (1.0-4.8) k/uL BUN 24 H (9-20) mg/dL Glucose 262 H (74-99) mg/dL Total Bilirubin 1.4 H (0.2-1.3) mg/dL
[2022-07-29] MEDS: SYMBICORT 160-4.5 MCG INHALER INHALATION SCH (19:51)
[2022-07-29] MEDS: AZITHROMYCIN 500 MG TAB PO SCH (20:54)
[2022-07-29] MEDS: LORATADINE-PSEUDOEPH 5-120 MG 1 EACH TAB.ER.12H PO SCH (21:08)
[2022-07-30] MEDS: methylPREDNISolone SOD SUCCI 125 MG/2 ML VIAL IV SCH ×3 (00:31→12:30)
[2022-07-30] MEDS: PANTOPRAZOLE 40 MG TABLET PO SCH (04:53)
[2022-07-30 06:04] LABS: Glucose,Whole Blood 204 mg/dL (70-110)
[2022-07-30] MEDS: FUROSEMIDE 20 MG TAB PO SCH (08:42)
[2022-07-30] MEDS: METOPROLOL SUCCINATE (ER) 100 MG TAB.ER.24H PO SCH (08:42)
[2022-07-30] MEDS: ENOXAPARIN 40 MG/0.4 ML SYRINGE SQ SCH (08:42)
[2022-07-30] MEDS: LOSARTAN 50 MG TAB PO SCH (08:42)
[2022-07-30] MEDS: LORATADINE-PSEUDOEPH 5-120 MG 1 EACH TAB.ER.12H PO SCH ×2 (08:42→21:59)
[2022-07-30] MEDS: IPRATROPIUM-ALBUTEROL 3 ML NEB INHALATION SCH ×4 (09:32→21:10)
[2022-07-30] MEDS: SYMBICORT 160-4.5 MCG INHALER INHALATION SCH ×2 (09:32→21:09)
[2022-07-30] MEDS: FLUTICASONE 110 MCG INHALER INHALATION SCH ×2 (09:33→21:10)
[2022-07-30 12:13] LABS: Glucose,Whole Blood 239 mg/dL (70-110)
--- NOTE | 2022-07-30 13:42 | P.PN ---
Subjective Progress Note Date: 07/30/22 This is a very pleasant morbidly obese 57-year-old male patient with a history of mild intermittent chronic bronchial asthma, lifelong nonsmoker, hypertension, gastroesophageal reflux disease, lower extremity peripheral edema who had recently been having issues with increasing shortness of breath cough congestion chest tightness since cutting the grass approximately a week ago. He had also recently been started on lisinopril. He had been seen at [facility] and was treated with antibiotics and steroids. He also followed up with his PCP who found his O2 saturations in the 80s and was recommended evaluation in our emergency room yesterday. 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 Chest x-ray revealed low lung volumes with no evidence of pleural effusion, focal consolidation or pneumothorax. White count 9.9. Hemoglobin 14.4. Platelets 205. Sodium 138. Potassium 4.6. Bicarb 26. BUN 24. Creatinine 0.74. Glucose 262. Troponin negative 1. Influenza screen negative. RSV screen negative. COVID-19 screen negative. The patient is seen today 07/30/2022 in follow-up on the regular medical floor. He is currently sitting up in a chair at the bedside. Awake and alert in no acute distress feeling quite a bit better today compared to yesterday. He is maintaining O2 saturation was in the 90s on room air. His pro calcitonin came back negative at 0.05. Sputum culture pending. Blood glucose 239. He is continued on DuoNeb inhalations, Symbicort, IV Solu-Medrol. Antibiotics in the form of ceftriaxone and azithromycin. Objective - Vital Signs Vital signs: Vital Signs Temp 98.1 F 07/30/22 07:34 Pulse 86 07/30/22 12:53 Resp 21 07/30/22 08:22 BP 170/51 07/30/22 07:34 Pulse Ox 91 L 07/30/22 09:34 FiO2 Intake & Output 07/29/22 07/30/22 07/30/22 18:59 06:59 18:59 Other: # Voids 1 - Exam GENERAL EXAM: Alert, morbidly obese 57-year-old male, sitting up in a chair, 2 L nasal cannula, comfortable in no apparent distress. HEAD: Normocephalic. EYES: Normal reaction of pupils, equal size. NOSE: Clear with pink turbinates. THROAT: No erythema or exudates. NECK: No masses, no JVD. CHEST: No chest wall deformity. LUNGS: Equal air entry with few scattered rhonchi. CVS: S1 and S2 normal with no audible murmur, regular rhythm. ABDOMEN: No hepatosplenomegaly, normal bowel sounds, no guarding or rigidity. SPINE: No scoliosis or deformity SKIN: No rashes CENTRAL NERVOUS SYSTEM: No focal deficits, tone is normal in all 4 extremities. EXTREMITIES: There is 1+ peripheral edema. Changes of chronic venous stasis. No clubbing, no cyanosis. Peripheral pulses are intact. - Labs CBC & Chem 7: 07/28/22 19:32 07/28/22 19:32 Labs: Abnormal Lab Results - Last 24 Hours (Table) 07/29/22 07/29/22 07/30/22 Range/Units 14:24 15:02 06:02 POC Glucose (mg/dL) 267 H 204 H (70-110) mg/dL Hemoglobin A1c 6.6 H (<=6.0) % 07/30/22 Range/Units 12:11 POC Glucose (mg/dL) 239 H (70-110) mg/dL Hemoglobin A1c (<=6.0) % Microbiology - Last 24 Hours (Table) 07/28/22 23:57 Gram Stain - Preliminary Sputum Assessment and Plan Assessment: Acute exacerbation of suspected mild intermittent chronic bronchial asthma versus tracheobronchitis. No clear evidence of pneumonia. Pro-calcitonin 0.05. Failed outpatient therapy. Acute hypoxemic respiratory failure secondary to above Morbid obesity with a BMI of 66 kg per metered square Suspected obstructive sleep apnea/obesity/hypoventilation syndrome Hyperglycemia without diabetes mellitus Hypertension and recently initiated on lisinopril Gastroesophageal reflux disease Lifelong nonsmoker Plan: The patient was seen and evaluated Labs and medications reviewed Procalcitonin within normal limits Continue empiric azithromycin Discontinue ceftriaxone Continue bronchodilators, steroids Titrate down the FiO2 as tolerated We will continue to follow I have personally seen and examined the patient, performed the documentation and the assessment and plan as written. Number of minutes spent on the visit: 10.
--- NOTE | 2022-07-30 13:57 | P.PN ---
Progress Note - Text Progress Note Date: 07/30/22 Chief Complaint: Short of breath This is a pleasant 57-year-old patient who follows with Dr. Ramon. Chronic stable stable medical conditions include hypertension, arthritis, GERD, obesity. For about 2 weeks patient been having increasing shortness of breath. Cough. Green sputum. Some nasal drainage. Has been having fever and chills off and on. Appetite is fair. No change in bowel pattern. No skin rash. Patient is accompanied by sister in the hospital. Admitted with acute asthma exacerbation, acute tracheal bronchitis. On bronchodilators, Solu-Medrol, Zithromax July 30: Sitting up in a chair. Eating well. Breathing better. Less wheezing and cough. Nasal drainage better. Active Medications Acetaminophen (Acetaminophen Tab 500 Mg Tab) 1,000 mg PO Q6HR PRN PRN Reason: Pain or Fever > 100.5 Last Admin: 07/29/22 06:35 Dose: 1,000 mg Albuterol/Ipratropium (Ipratropium-Albuterol 3 Ml Neb) 3 ml INHALATION RT-Q4H PRN PRN Reason: shortness of breath Albuterol/Ipratropium (Ipratropium-Albuterol 3 Ml Neb) 3 ml INHALATION RT-QID [facility] Last Admin: 07/30/22 12:41 Dose: 3 ml Azithromycin (Azithromycin 500 Mg Tab) 500 mg PO HS [facility]; Protocol Stop: 07/30/22 21:01 Last Admin: 07/29/22 20:54 Dose: 500 mg Budesonide/Formoterol Fumarate (Symbicort 160-4.5 Mcg Inhaler) 2 puff INHALATION RT-BID [facility] Last Admin: 07/30/22 09:32 Dose: Not Given Enoxaparin Sodium (Enoxaparin 40 Mg/0.4 Ml Syringe) 40 mg SQ DAILY [facility] Last Admin: 07/30/22 08:42 Dose: 40 mg Fluticasone Propionate (Fluticasone 110 Mcg Inhaler) 1 puff INHALATION RT-BID [facility] Last Admin: 07/30/22 09:33 Dose: 1 puff Furosemide (Furosemide 20 Mg Tab) 20 mg PO DAILY [facility] Last Admin: 07/30/22 08:42 Dose: 20 mg Guaifenesin (Guaifenesin Syrup 100mg/5ml 200 Mg/10 Ml Cup) 400 mg PO Q4H PRN PRN Reason: Cough Last Admin: 07/29/22 20:54 Dose: 400 mg Ibuprofen (Ibuprofen 800 Mg Tab) 800 mg PO BID PRN PRN Reason: Pain Insulin Aspart (Insulin Aspart (Novolog) 100 Unit/Ml Vial) 0 unit SQ ACHS PRN; Protocol PRN Reason: Blood Sugar - High Last Admin: 07/29/22 15:34 Dose: 6 unit Loratadine/Pseudoephedrine Sulfate (Loratadine-Pseudoeph 5-120 Mg 1 Each Tab.Er.12h) 1 each PO Q12HR [facility] Last Admin: 07/30/22 08:42 Dose: 1 each Losartan Potassium (Losartan 50 Mg Tab) 50 mg PO DAILY [facility] Last Admin: 07/30/22 08:42 Dose: 50 mg Methylprednisolone Sodium Succinate (Methylprednisolone Sod Succi 125 Mg/2 Ml Vial) 60 mg IV Q6HR [facility] Last Admin: 07/30/22 12:30 Dose: 60 mg Metoprolol Succinate (Metoprolol Succinate (Er) 100 Mg Tab.Er.24h) 100 mg PO DAILY [facility] Last Admin: 07/30/22 08:42 Dose: 100 mg Miscellaneous Information (Pneumonia Protocol Utilized 1 Each Misc) 1 each PO ONCE PRN PRN Reason: Per Protocol Pantoprazole Sodium (Pantoprazole 40 Mg Tablet) 40 mg PO AC-BRKFST [facility] Last Admin: 07/30/22 04:53 Dose: 40 mg Past medical history to include: Asthma, GERD, hypertension, herniated disc, varicose veins, gout, morbid obesity Social history: Patient is to his mother. No smoking or alcohol. Not employed Physical examination: VITAL SIGNS: 98.1, 94, 21, 170/51, 91% room air GENERAL: BMI 66.1, up in a recliner, breathing better EYES: Pupils equal. Conjunctiva normal. HEENT: External appearance of nose and ears normal, oral cavity grossly normal. NECK: JVD not raised; masses not palpable. HEART: First and second heart sounds are normal; no edema. LUNGS: Respiratory rate increased; creased breath sounds, some wheezing. ABDOMEN: Soft, nontender, liver spleen not palpable, no masses palpable. PSYCH: Alert and oriented x3; mood and affect normal. MUSCULOSKELETAL:No Clubbing/cyanosis;muscles-grossly intact INVESTIGATIONS, reviewed in the clinical context: White count 9.9 hemoglobin 14.4 platelets 205 sodium 138 potassium 4.6 BUN 24 creatinine 0.74 Procalcitonin 0.05 Influenza type A, B, urine Legionella antigen, RNC, COVID-19: Not detected EKG tracing personally reviewed by me-normal sinus rhythm. Chest x-ray film personally reviewed by me-no penetration. Assessment and plan: -Acute exacerbation of intermittent asthma secondary to tracheobronchitis: Improving DuoNeb, Symbicort, IV Solu-Medrol -Acute rhinosinusitis./Tracheal bronchitis Claritin-D 1 tablet twice a day. Zithromax -Essential hypertension Toprol-XL, Zestril -GERD Prilosec -Osteoarthritis including low back pain Motrin when necessary. -Morbid obesity BMI 66.1 Weight loss measures Discussed with patient. Improving. Increase activity. Hopefully discharge in 1-2 days
[2022-07-30] MEDS ORDERED: methylPREDNISolone SOD SUCCI 40 MG/ML 1 ML VIAL IV SCH (14:00)
[2022-07-30 16:35] LABS: Glucose,Whole Blood 214 mg/dL (70-110)
[2022-07-30 20:50] LABS: Glucose,Whole Blood 268 mg/dL (70-110)
[2022-07-30 21:53] VITALS: TEMP 97.5
[2022-07-30] MEDS: methylPREDNISolone SOD SUCCI 40 MG/ML 1 ML VIAL IV SCH (21:58)
[2022-07-30] MEDS: AZITHROMYCIN 500 MG TAB PO SCH (21:59)
[2022-07-31] MEDS: PANTOPRAZOLE 40 MG TABLET PO SCH (05:34)
[2022-07-31] MEDS: methylPREDNISolone SOD SUCCI 40 MG/ML 1 ML VIAL IV SCH (05:34)
[2022-07-31 06:21] LABS: Glucose,Whole Blood 158 mg/dL (70-110)
[2022-07-31 07:30] VITALS: BP 133/68; RESP 23
[2022-07-31] MEDS: LORATADINE-PSEUDOEPH 5-120 MG 1 EACH TAB.ER.12H PO SCH (07:48)
[2022-07-31] MEDS: LOSARTAN 50 MG TAB PO SCH (07:48)
[2022-07-31] MEDS: FUROSEMIDE 20 MG TAB PO SCH (07:48)
[2022-07-31] MEDS: ENOXAPARIN 40 MG/0.4 ML SYRINGE SQ SCH (07:48)
[2022-07-31] MEDS: METOPROLOL SUCCINATE (ER) 100 MG TAB.ER.24H PO SCH (07:48)
[2022-07-31] MEDS: SYMBICORT 160-4.5 MCG INHALER INHALATION SCH (09:20)
[2022-07-31] MEDS: FLUTICASONE 110 MCG INHALER INHALATION SCH (09:20)
[2022-07-31] MEDS: IPRATROPIUM-ALBUTEROL 3 ML NEB INHALATION SCH (09:20)
[2022-07-31 11:07] VITALS: PULSE 75
--- NOTE | 2022-07-31 12:15 | P.PN ---
Subjective Progress Note Date: 07/31/22 This is a very pleasant morbidly obese 57-year-old male patient with a history of mild intermittent chronic bronchial asthma, lifelong nonsmoker, hypertension, gastroesophageal reflux disease, lower extremity peripheral edema who had recently been having issues with increasing shortness of breath cough congestion chest tightness since cutting the grass approximately a week ago. He had also recently been started on lisinopril. He had been seen at [facility] and was treated with antibiotics and steroids. He also followed up with his PCP who found his O2 saturations in the 80s and was recommended evaluation in our emergency room yesterday. 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 Chest x-ray revealed low lung volumes with no evidence of pleural effusion, focal consolidation or pneumothorax. White count 9.9. Hemoglobin 14.4. Platelets 205. Sodium 138. Potassium 4.6. Bicarb 26. BUN 24. Creatinine 0.74. Glucose 262. Troponin negative 1. Influenza screen negative. RSV screen negative. COVID-19 screen negative. The patient is seen today 07/30/2022 in follow-up on the regular medical floor. He is currently sitting up in a chair at the bedside. Awake and alert in no acute distress feeling quite a bit better today compared to yesterday. He is maintaining O2 saturation was in the 90s on room air. His pro calcitonin came back negative at 0.05. Sputum culture pending. Blood glucose 239. He is continued on DuoNeb inhalations, Symbicort, IV Solu-Medrol. Antibiotics in the form of ceftriaxone and azithromycin. The patient is seen today 07/31/2022 in follow-up on the regular medical floor. He is currently sitting up in a chair at the bedside. Awake and alert in no acute distress. No worsening shortness of breath, cough or congestion. Maintaining good O2 saturations in the 90s on room air. Blood glucose 158. He is continued on DuoNeb inhalations, Symbicort, IV Solu-Medrol. Antibiotics in the form of ceftriaxone. Objective - Vital Signs Vital signs: Vital Signs Temp 97.5 F L 07/31/22 07:03 Pulse 76 07/31/22 09:31 Resp 23 07/31/22 08:00 BP 133/68 07/31/22 07:03 Pulse Ox 93 L 07/31/22 09:20 FiO2 Intake & Output 07/30/22 07/31/22 07/31/22 18:59 06:59 18:59 Other: # Voids 4 2 - Exam GENERAL EXAM: Alert, morbidly obese 57-year-old male, sitting up in a chair, on room air, comfortable in no apparent distress. HEAD: Normocephalic. EYES: Normal reaction of pupils, equal size. NOSE: Clear with pink turbinates. THROAT: No erythema or exudates. NECK: No masses, no JVD. CHEST: No chest wall deformity. LUNGS: Equal air entry with few scattered rhonchi. CVS: S1 and S2 normal with no audible murmur, regular rhythm. ABDOMEN: No hepatosplenomegaly, normal bowel sounds, no guarding or rigidity. SPINE: No scoliosis or deformity SKIN: No rashes CENTRAL NERVOUS SYSTEM: No focal deficits, tone is normal in all 4 extremities. EXTREMITIES: There is 1+ peripheral edema. Changes of chronic venous stasis. No clubbing, no cyanosis. Peripheral pulses are intact. - Labs CBC & Chem 7: 07/28/22 19:32 07/28/22 19:32 Labs: Abnormal Lab Results - Last 24 Hours (Table) 07/29/22 07/30/22 07/30/22 Range/Units 15:02 12:11 16:30 POC Glucose (mg/dL) 239 H 214 H (70-110) mg/dL Hemoglobin A1c 6.6 H (<=6.0) % 07/30/22 07/31/22 Range/Units 20:48 06:19 POC Glucose (mg/dL) 268 H 158 H (70-110) mg/dL Hemoglobin A1c (<=6.0) % Microbiology - Last 24 Hours (Table) 07/28/22 23:57 Gram Stain - Final Sputum Sputum Culture - Final 07/28/22 21:08 Blood Culture - Preliminary Blood 07/28/22 21:23 Blood Culture - Preliminary Blood Assessment and Plan Assessment: Acute exacerbation of suspected mild intermittent chronic bronchial asthma versus tracheobronchitis. No clear evidence of pneumonia. Pro-calcitonin 0.05. Failed outpatient therapy. Acute hypoxemic respiratory failure secondary to above Morbid obesity with a BMI of 66 kg per metered square Suspected obstructive sleep apnea/obesity/hypoventilation syndrome Hyperglycemia without diabetes mellitus Hypertension and recently initiated on lisinopril Gastroesophageal reflux disease Lifelong nonsmoker Plan: The patient was seen and evaluated Medications reviewed Cleared for discharge from the pulmonary standpoint Continue bronchodilators Continue prednisone taper Follow-up in the office in 1 week I have personally seen and examined the patient, performed the documentation and the assessment and plan as written. Number of minutes spent on the visit: 10.
--- NOTE | 2022-07-31 14:40 | P.DS ---
Providers Date of admission: 07/28/22 21:05 Expected date of discharge: 07/31/22 Attending physician: Cirilo Bernabe Consults: 07/28/22 21:05 Consult Physician Urgent Consulting Provider: Padmini Burgos Consult Reason/Comments: Acute hypoxic respiratory failure Do you want consulting provider notified?: Yes Primary care physician: [facility] Course: Chief Complaint: Short of breath This is a pleasant 57-year-old patient who follows with Dr. Ramon. Chronic stable stable medical conditions include hypertension, arthritis, GERD, obesity. For about 2 weeks patient been having increasing shortness of breath. Cough. Green sputum. Some nasal drainage. Has been having fever and chills off and on. Appetite is fair. No change in bowel pattern. No skin rash. Patient is accompanied by sister in the hospital. Admitted with acute asthma exacerbation, acute tracheal bronchitis. On bronchodilators, Solu-Medrol, Zithromax July 30: Sitting up in a chair. Eating well. Breathing better. Less wheezing and cough. Nasal drainage better. July 31: Doing much better. And bleeding. This few symptoms much improved. Her discharge. Prednisone taper. Discussed with patient's sister the bedside. Have patient follow-up with pulmonary. Past medical history to include: Asthma, GERD, hypertension, herniated disc, varicose veins, gout, morbid obesity Social history: Patient is to his mother. No smoking or alcohol. Not employed Physical examination: VITAL SIGNS: 97.5, 75, 23, 133 with 68, 93% GENERAL: BMI 66.1, comfortable EYES: Pupils equal. Conjunctiva normal. HEENT: External appearance of nose and ears normal, oral cavity grossly normal. NECK: JVD not raised; masses not palpable. HEART: First and second heart sounds are normal; no edema. LUNGS: Respiratory rate normal; but sound ABDOMEN: Soft, nontender, liver spleen not palpable, no masses palpable. PSYCH: Alert and oriented x3; mood and affect normal. MUSCULOSKELETAL:No Clubbing/cyanosis;muscles-grossly intact INVESTIGATIONS, reviewed in the clinical context: White count 9.9 hemoglobin 14.4 platelets 205 sodium 138 potassium 4.6 BUN 24 creatinine 0.74 Procalcitonin 0.05 Influenza type A, B, urine Legionella antigen, RNC, COVID-19: Not detected EKG tracing personally reviewed by me-normal sinus rhythm. Chest x-ray film personally reviewed by me-mayte umana. Assessment and plan: -Acute exacerbation of intermittent asthma secondary to tracheobronchitis: Better Albuterol when necessary, Flovent, discharged on prednisone taper -Acute rhinosinusitis./Tracheal bronchitis Claritin-D 1 tablet twice a day. Zithromax -Essential hypertension Toprol-XL, Zestril -GERD Prilosec -Osteoarthritis including low back pain Motrin when necessary. -Morbid obesity BMI 66.1 Weight loss measures Disposition: Home Patient Condition at Discharge: Stable Plan - Discharge Summary Discharge Rx Participant: No New Discharge Prescriptions: New Albuterol Sulfate [Albuterol Sulfate Hfa] 1 puff PO Q4-6H #8.5 gm Loratadine-Pseudoeph 5-120 mg [Claritin-D 12 Hour] 1 each PO Q12HR #4 tab predniSONE 10 mg PO DAILY #30 tab Continue Ibuprofen [Motrin] 800 mg PO BID PRN PRN Reason: Pain Omeprazole [PriLOSEC] 20 mg PO DAILY Fluticasone Propionate 110 Mcg [Flovent 110 Mcg Inhaler] 1 puff INHALATION RT-BID Metoprolol Succinate (ER) [Toprol XL] 100 mg PO DAILY Acetaminophen Tab [Tylenol] 1,000 mg PO Q6HR PRN PRN Reason: Pain Or Fever > 100.5 Furosemide [Lasix] 20 mg PO DAILY Discontinued predniSONE 50 mg PO DAILY guaiFENesin SYRUP 100MG/5ML [Robitussin] 400 mg PO Q4H PRN PRN Reason: Cough No Action lisinopriL [Zestril] 10 mg PO DAILY Discharge Medication List Ibuprofen [Motrin] 800 mg PO BID PRN 06/11/15 [History] Omeprazole [PriLOSEC] 20 mg PO DAILY 09/12/17 [History] Acetaminophen Tab [Tylenol] 1,000 mg PO Q6HR PRN 07/28/22 [History] Fluticasone Propionate 110 Mcg [Flovent 110 Mcg Inhaler] 1 puff INHALATION RT- BID 07/28/22 [History] Furosemide [Lasix] 20 mg PO DAILY 07/28/22 [History] Metoprolol Succinate (ER) [Toprol XL] 100 mg PO DAILY 07/28/22 [History] lisinopriL [Zestril] 10 mg PO DAILY 07/28/22 [History] Albuterol Sulfate [Albuterol Sulfate Hfa] 1 puff PO Q4-6H #8.5 gm 07/31/22 [Rx] Loratadine-Pseudoeph 5-120 mg [Claritin-D 12 Hour] 1 each PO Q12HR #4 tab 07/31/22 [Rx] predniSONE 10 mg PO DAILY #30 tab 07/31/22 [Rx] Follow up Appointment(s)/Referral(s): Padmini Burgos MD [STAFF PHYSICIAN] - 10 Days (Office closed at time of discharge. Please call for appointment.) Henrry Ramon MD [Primary Care Provider] - 1-2 days (Office is closed at time of discharge. Please call for appointment.) Discharge Disposition: HOME SELF-CARE
[2022-08-01] MEDS ORDERED: predniSONE 20 MG TAB PO SCH (09:00)
== END 2022-07-31 11:52 | disposition home or self-care (01) ==
LOC: EC 17:22 → 4SSUR 21:05 → INTOOBSV 21:05 → 4SSUR 07-29 23:29 → UNDODISIN 07-31 11:52
PROVIDERS: ADMIT Hospitalist; ATTEND Hospitalist
DX: J45.21 Mild intermittent asthma with (acute) exacerbation (principal); J96.01 Acute respiratory failure with hypoxia; J40 Bronchitis, not specified as acute or chronic; J01.90 Acute sinusitis, unspecified; K21.9 Gastro-esophageal reflux disease without esophagitis; I10 Essential (primary) hypertension; I83.90 Asymptomatic varicose veins of unspecified lower extremity; M10.9 Gout, unspecified; M15.9 Polyosteoarthritis, unspecified; E66.01 Morbid (severe) obesity due to excess calories; I87.8 Other specified disorders of veins; Z79.899 Other long term (current) drug therapy; Z82.5 Family history of asthma and other chronic lower respiratory diseases; Z80.42 Family history of malignant neoplasm of prostate; Z83.3 Family history of diabetes mellitus; Z82.49 Family history of ischemic heart disease and other diseases of the circulatory system; Z20.822 Contact with and (suspected) exposure to COVID-19; Z68.44 Body mass index [BMI] 60.0-69.9, adult; Z56.0 Unemployment, unspecified
CPT/HCPCS: 96376 ×4; 96366 ×3; 96372 ×3; 96365; 96367; 96375; 99285; 36415; 94640 ×7; 94760 ×2; 93005; 83880; 80053; 87449; 83605; 84484; 85025; 85610; 85730; 87040; 87070; 87205; 83036; 84145; 87636; 71045; 71046; G0378 ×4; J2920 ×2; J2930 ×3; J0456; J0696 ×3; J1650 ×3